=== PATIENT | female | born 1930 | race Caucasian/White ===

== ENCOUNTER 2017-03-22 09:30 | Emergency (ER) | payer MEDICARE ==
[2017-03-22 09:59] VITALS: BP 149/62
--- NOTE | 2017-03-22 09:59 | UC ---
Head Injury HPI - HPI Summary HPI Summary: Pt presents with daughter saying that she fell 2 days ago. She tripped going down steps and sustained a FOOSH type injury. No lacerations. Hit the bridge of her nose on the ground. Fall was witnessed and she had no LOC. Pain was mostly in her nose and b/l hands for that day and yesterday. Today her only complaint is LT hand generalized pain and mild redness/swelling of the 1st and 2nd MCPs. Last night she used a hand brace she had at home and her hand feels 90% better today. Denies fever, chills, vision changes, dizziness, headache, weakness, or numbness. - History Of Current Complaint Stated Complaint: FELL NOSE/HANDS INJURY Time Seen by Provider: 03/22/17 09:48 Hx Obtained From: Patient Onset/Duration: Sudden Onset Severity Currently: Moderate Severity Initially: Mild Pain Intensity: 3 Pain Scale Used: 0-10 Numeric Character: Sharp - Allergies/Home Medications Allergies/Adverse Reactions: Allergies Allergy/AdvReac Type Severity Reaction Status Date / Time AZITHROMYCIN Allergy Nausea Uncoded 11/19/16 12:05 Home Medications: Home Medications Acetaminophen [Eq Pain Reliever] 500 mg PO 03/22/17 [History] Alprazolam 0.25 mg PO 03/22/17 [History] Amlodipine Besylate [Norvasc 5 mg tab] 5 mg PO DAILY 03/22/17 [History Confirmed 03/22/17] Atenolol [Tenormin 100 MG] 100 mg PO DAILY 03/22/17 [History Confirmed 03/22/17] Atorvastatin* [Lipitor*] 20 mg PO 1700 03/22/17 [History Confirmed 03/22/17] Utsytitxkt-Qnjyvyf-Dgaqyaun [Fiorinal 50-325-40 mg-] 1 cap PO Q6H PRN 03/22/17 [ History Confirmed 03/22/17] Calcium Citrate-Vitamin D [Citracal + D3 Maximum] 1 tab PO 03/22/17 [History] Cholecalciferol TAB* [Vitamin D TAB*] 1,000 unit PO DAILY 03/22/17 [History Confirmed 03/22/17] Omeprazole CAP* [Prilosec CAP* 20 MG] 20 mg PO DAILY 03/22/17 [History Confirmed 03/22/17] Ondansetron HCl [Zofran 4 MG TAB] 4 mg PO 03/22/17 [History] PMH/Surg Hx/FS Hx/Imm Hx Previously Healthy: Yes Endocrine History: Dyslipidemia Cardiovascular History: Hypertension GI/ History: Gastroesophageal Reflux - Surgical History Surgical History: Yes Surgery Procedure, Year, and Place: HYSTERECTOMY. [facility]. [facility] 2008. BILATERAL CATARACTS - Social History Occupation: Retired Lives: With Family Alcohol Use: None Substance Use Type: None Smoking Status (MU): Never Smoked Tobacco Review of Systems Constitutional: Negative Skin: Negative Eyes: Negative Respiratory: Negative Cardiovascular: Negative Neurovascular: Negative Musculoskeletal: Other: - Pain in left hand Neurological: Negative Psychological: Negative All Other Systems Reviewed And Are Negative: Yes Physical Exam Triage Information Reviewed: Yes Appearance: Well-Appearing, Well-Nourished Vital Signs Reviewed: Yes Eyes: Positive: Conjunctiva Clear, Other: - EOMI. PERRLA. No papilledema. ENT: Positive: Hearing grossly normal, Pharynx normal, TMs normal. Negative: Pharyngeal erythema, Nasal congestion, Nasal drainage, TM bulging, TM dull, TM red, Tonsillar swelling, Tonsillar exudate, Sinus tenderness Neck: Positive: Supple, No Lymphadenopathy, Other: - FROM NTTP. Respiratory: Positive: Chest non-tender, Lungs clear, Normal breath sounds, No respiratory distress, No accessory muscle use Cardiovascular: Positive: RRR, No Murmur, Pulses Normal Musculoskeletal: Positive: Strength Intact, ROM Intact, Edema @ - Left hand at the 1st and 2nd MCPs mild., Other: - No obvious bony deformities. FROM left elbow, wrist, and all digits. 5/5 strength in b/l elbow, wrist, and all digits. Neurological: Positive: Alert, Muscle Tone Normal, Other: - Sensations intact UEs and all digits. CN II-XII grossly intact. Psychological: Positive: Age Appropriate Behavior Head Injury Course/Dx - Course Course Of Treatment: Hand XR - IMPRESSION: 1. OSTEOPENIA. 2. OSTEOARTHRITIS. 3. SOFT TISSUE CALCIFICATION ALONG THE FIRST AND THIRD MCP JOINTS SUGGESTIVE OF A CRYSTALLINE ARTHROPATHY. 4. NO ACUTE OSSEOUS INJURY. THE DEGREE OF OSTEOPENIA MAY MAKE A NONDISPLACED FRACTURE RADIOGRAPHICALLY OCCULT. IF SYMPTOMS PERSIST, RECOMMEND REPEAT IMAGING. Pt will continue icing and using brace as needed for pain. She sees Dr. Serna for orthopedics - she will f/u with him prn - Differential Dx/Diagnosis Differential Diagnosis/HQI/PQRI: Contusion Provider Diagnoses: Left hand contusion Discharge - Discharge Plan Condition: Stable Disposition: HOME Patient Education Materials: Contusion in Adults (ED) Referrals: Isi Hyatt MD [Primary Care Provider] - Gianfranco Serna MD [Medical Doctor] - If Needed Additional Instructions: 1) Ice and use hand brace as needed for pain and swelling 2) If symptoms persist or get worse - please call the number below to schedule a follow up with Orthopedics Your blood pressure was high at todays visit. Please see your primary provider within 4 weeks for recheck and re-evaluation.
--- NOTE | 2017-03-22 10:44 | RAD ---
HISTORY: Fall, left hand pain COMPARISONS: None VIEWS: 4, Frontal, lateral, and oblique views of the left hand FINDINGS: BONE DENSITY: There is diffuse osteopenia. BONES: There is no displaced fracture. JOINTS: There is osteoarthritis of the first CMC joint, and first MCP joint. ALIGNMENT: There is no dislocation. SOFT TISSUES: There is soft tissue calcification along the first MCP joint and third MCP joint. OTHER FINDINGS: None. IMPRESSION: 1. OSTEOPENIA. 2. OSTEOARTHRITIS. 3. SOFT TISSUE CALCIFICATION ALONG THE FIRST AND THIRD MCP JOINTS SUGGESTIVE OF A CRYSTALLINE ARTHROPATHY. 4. NO ACUTE OSSEOUS INJURY. THE DEGREE OF OSTEOPENIA MAY MAKE A NONDISPLACED FRACTURE RADIOGRAPHICALLY OCCULT. IF SYMPTOMS PERSIST, RECOMMEND REPEAT IMAGING.
== END 2017-03-22 11:15 | disposition home or self-care (01) ==
LOC: UCEAST 09:30
DX: S60.222A Contusion of left hand, initial encounter (principal); W10.9XXA Fall (on) (from) unspecified stairs and steps, initial encounter; Y93.9 Activity, unspecified; Y92.9 Unspecified place or not applicable; Y99.9 Unspecified external cause status; M85.842 Other specified disorders of bone density and structure, left hand; M19.042 Primary osteoarthritis, left hand; L94.2 Calcinosis cutis; I10 Essential (primary) hypertension; K21.9 Gastro-esophageal reflux disease without esophagitis; E78.5 Hyperlipidemia, unspecified
CPT/HCPCS: 99211; G0463

== ENCOUNTER 2018-08-23 11:01 | Emergency (ER) | payer MEDICARE ==
[2018-08-23 11:20] VITALS: BP 147/67
[2018-08-23] MEDS ORDERED: Ondansetron ODT TAB* 4 MG PO ONE (11:33)
--- NOTE | 2018-08-23 11:36 | UC ---
Abdominal Pain Female HPI - HPI Summary HPI Summary: CHIEF COMPLAINT and HPI: This is a 88 with epigastric pain over the last 3 days. Denies pain, SOB or chest pain. Calls it "discomfort." In CCC, no pain. Patient c/o increased stress and anxiety. of DC 5 years ago. Also not taking her prilosec. Has hx of peptic discomfort and nausea. Being treated with prilosec and zofran. Medications & Allergies Reviewed. Nurses Note Reviewed. " c/o for three days she gets a pain "under my boobs" she is nauseatd but cannot throwup; she c/o constipation also.per patient "thought i was having a heart attack last night" She denies any chest pain, shortness of breath or difficulty breathing. " Hypertension status reviewed. Visit History Reviewed. Chronic conditions and problem list reviewed. Information contributory to present complaint: intermittent constipation. - History of Current Complaint Chief Complaint: UCGeneralIllness Stated Complaint: NAUSEA UPPER ABD PAIN Time Seen by Provider: 08/23/18 11:32 Hx Obtained From: Patient, Family/Showroom Sales Assistant Hx Last Menstrual Period: post menopausal Onset/Duration: Gradual Onset, Lasting Days - 3 Timing: Intermittent Episodes Lasting: - unknown Severity Currently: None Pain Intensity: 0 - no pain now Pain Scale Used: 0-10 Numeric Location: Epigastric Radiates: No Character: Other - "discomfort Aggravating Factor(s): Nothing Alleviating Factor(s): Antacids - patient uncertain Associated Signs and Symptoms: Positive: Negative Simlar Episode/Dx as:: chronic intermittent upper abdominal discomfort with nausea Allergies/Adverse Reactions: Allergies Allergy/AdvReac Type Severity Reaction Status Date / Time AZITHROMYCIN Allergy Nausea Uncoded 08/23/18 11:21 Home Medications: Home Medications Hydrochlorothiazide TAB* [Hydrodiuril TAB*] 25 mg PO DAILY 08/23/18 [History Confirmed 08/23/18] Potassium Chloride [Klor-Con M20] 08/23/18 [History Confirmed 08/23/18] PMH/Surg Hx/FS Hx/Imm Hx - Additional Past Medical History Additional PMH: PAST MEDICAL HISTORY: HTN; hearing deficit; nausea; peptic disease. FAMILY HISTORY: Positive history of: -HYPTERTENSION SOCIAL HISTORY: Employment: retired Family Environment: granddaughter checks on her Habits: non smoker; no ETOH - Surgical History Surgical History: Yes Surgery Procedure, Year, and Place: HYSTERECTOMY. [facility] [place]. [facility] 2007. BILATERAL CATARACTS - Social History Alcohol Use: None Substance Use Type: None Smoking Status (MU): Never Smoked Tobacco Review of Systems All Other Systems Reviewed And Are Negative: Yes Constitutional: Positive: Negative. Negative: Fever Cardiovascular: Positive: Negative. Negative: Chest Pain Gastrointestinal: Positive: Abdominal Pain - epigastric discomfort, Nausea. Negative: Vomiting, Diarrhea Genitourinary: Positive: Negative Psychological: Positive: Depressed - anxious; nephew recently Is Patient Immunocompromised?: No Physical Exam - Summary Physical Exam Summary: Appearance: The patient is well-appearing, is in no pain or distress, and is well-nourished. Eyes: Conjunctiva are clear. Pupils are equal and reactive to light and accommodation. Extra ocular muscle movement is intact. ENT: The hearing is grossly normal, the pharynx is normal, and the TMs are normal. There is no muffled or hoarse voice. No stridor. Neck: The neck is supple and there is no lymphadenopathy. Respiratory: The chest is nontender to palpation and without crepitus. The lungs are clear, there are normal breath sounds, and there is no respiratory distress. No wheezes, rales or rhonchi. Cardiovascular: Heart sounds reveal a regular rate and rhythm. There are no clicks, rubs or murmurs. There are no carotid bruits or thrills. Circulation is grossly intact. Abdomen: The abdomen is soft and nontender. There is no organomegaly. Bowel sounds are present and within normal limits. No point tenderness at McBurneys point. No peritoneal signs. Musculoskeletal: Strength is intact. The patient moves all extremities. Neurological: The patient is alert. Motor and sensory are examination grossly intact. Speech is normal. Psychological: The patient displays age appropriate behavior Skin: Negative for rashes. EKG: Sinus rhythm, single premature beat with an intraventricular conduction delay. No acute ischemia. Read by Es Triage Information Reviewed: Yes Vital Signs: Initial Vital Signs Temp 97.2 F 08/23/18 11:11 Pulse 68 08/23/18 11:11 Resp 18 08/23/18 11:11 BP 147/67 08/23/18 11:11 Pulse Ox 100 08/23/18 11:11 Vital Signs Reviewed: Yes Abd Pain Female Course/Dx - Course Course Of Treatment: MEDICAL DECISION MAKING & PLAN:This is a 88 with epigastric pain over the last 3 days. Denies pain. Calls it "discomfort." In CCC, no pain. Patient c/o increased stress and anxiety. Also not taking her prilosec. Has hx of peptic discomfort and nausea. Being treated with prilosec and zofran. Physical examination is unremarkable. Patient is comfortable and conversant. Smiling. Moving without pain. Denies pain in CCC. Given her hx and current psychologial stress, my differential besides pain from cardiovascular event ( negative EKG), is peptic disease. Patient and granddaughter know to follow up in two days and go to ED for increased or new pain. Will take prilosec everyday as prescribed. Recommended Mylanta today. MEDICATIONS REVIEWED: Medications have been included in the original chart and reviewed. HYPERTENSION STATUS REVIEWED. CURRENT HTN TREATMENT: Elevated BP but has current hypertension diagnosis and treatment. Patient maintains compliance with medication. Referred to PCP to evaluate current medication. Patient voices understanding. - Differential Dx/Diagnosis Differential Diagnosis: Abdominal Aortic Aneurysm, Constipation, Gall Bladder Disease, Peptic Ulcer Disease Provider Diagnosis: Peptic disease Discharge - Sign-Out/Discharge Documenting (check all that apply): Patient Departure All imaging exams completed and their final reports reviewed: No Studies - Discharge Plan Condition: Stable Disposition: HOME Patient Education Materials: Peptic Ulcer (ED), Diet for Stomach Ulcers and Gastritis (ED) Referrals: Isi Hyatt MD [Primary Care Provider] - Additional Instructions: WE DISCUSSED: PLEASE SEEK CARE AT THE EMERGENCY DEPARTMENT IF SYMPTOMS WORSEN OR IF NEW SYMPTOMS DEVELOP. FOLLOW UP WITH YOUR PRIMARY CARE PHYSICIAN IF CONDITION CONTINUES BEYOND 3 DAYS WITHOUT IMPROVEMENT. We are open from 7 a.m. to 10 p.m. Call us with any questions or concerns. YOUR DIAGNOSIS IS: PEPTIC DISEASE; EXTRA ACID IN YOUR STOMACH YOUR PRESCRIPTION RECOMMENDATION IS: none; get Mylanta; RESTART YOUR OMEPRAZOLE and Zofran. Take Benedryl, 12.5 MG, or Xanax for anxiety. OTHER INSTRUCTIONS: SEE YOUR DOCTOR IN TWO DAYS; GO TO ED FOR ANY INCREASED OR DIFFERENT PAIN OR ANY NEW SYMPTOMS. Your granddaughter will keep a close eye on you. Your EKG did not show a heart attack, but for a complete heart evaluation you would need to go to the ED. Hypertension Discharge Instructions: Your blood pressure reading today was 147/67, indicating HYPERTENSION. Follow- up with your primary care provider as planned in 2 days for blood pressure check and appropriate recommendations and treatment, as needed. - Billing Disposition and Condition Condition: STABLE Disposition: Home
== END 2018-08-23 12:14 | disposition home or self-care (01) ==
LOC: UCEAST 11:01
DX: K30 Functional dyspepsia (principal); I10 Essential (primary) hypertension; H91.8X9 Other specified hearing loss, unspecified ear
CPT/HCPCS: 93005; 99212; A9270-GY; G0463

== ENCOUNTER 2018-10-27 12:43 | Emergency (ER) | payer MEDICARE ==
[2018-10-27] MEDS ORDERED: Acetaminophen TAB* 325 MG PO ONE (13:50)
--- NOTE | 2018-10-27 14:33 | UC ---
Minor Trauma HPI - HPI Summary HPI Summary: 88-year-old female presents with daughter with complaints of low back pain after a fall. States her dog got loose and started fighting with another dog in the street, she was attempting to retrieve her dog and got knocked over backwards falling flat on her back onto the asphalt. States she did hit the back of her head. No loss of consciousness. She was helped to her feet by a bystander and assisted back to her house. She is complaining of severe low back pain. She took 2 of her Fiorocet with no relief in pain. Used a heating pad with some relief. Denies headache, visual disturbances, dizziness, lightheadedness, neck pain, chest pain, shortness of breath, weakness, numbness , or tingling of the extremities, or any other injury. - History of Current Complaint Chief Complaint: UCBackPain Stated Complaint: BACK INJURY Time Seen by Provider: 10/27/18 13:33 Hx Obtained From: Patient Hx Last Menstrual Period: post menopausal Pain Intensity: 8 - Allergies/Home Medications Allergies/Adverse Reactions: Allergies Allergy/AdvReac Type Severity Reaction Status Date / Time AZITHROMYCIN Allergy Nausea Uncoded 10/27/18 13:12 PMH/Surg Hx/FS Hx/Imm Hx Endocrine History: Dyslipidemia Cardiovascular History: Hypertension Neurological History: Migraine Psychological History: Anxiety - Surgical History Surgical History: Yes Surgery Procedure, Year, and Place: HYSTERECTOMY. [facility] 1998. [facility] 2007. BILATERAL CATARACTS - Family History Known Family History: Positive: Non-Contributory - Social History Occupation: Retired Lives: With Family Alcohol Use: None Substance Use Type: None Smoking Status (MU): Never Smoked Tobacco Review of Systems All Other Systems Reviewed And Are Negative: Yes Constitutional: Positive: Negative Skin: Positive: Negative Eyes: Negative: Blurred Vision, Diplopia, Photophobia ENT: Positive: Negative Respiratory: Negative: Shortness Of Breath Cardiovascular: Negative: Palpitations, Chest Pain Gastrointestinal: Negative: Abdominal Pain, Vomiting, Diarrhea, Nausea Genitourinary: Positive: Negative Motor: Negative: Weakness Neurovascular: Negative: Decreased Sensation Musculoskeletal: Positive: Other: - See HPI Neurological: Negative: Headache, Weakness, Paresthesia, Numbness Is Patient Immunocompromised?: No Physical Exam - Summary Physical Exam Summary: GENERAL APPEARANCE: Alert and cooperative older adult female who appears to be uncomfortable. HEAD: Atraumatic. Normocephalic. EYES: Conjunctiva clear. No drainage. PERRL, EOM intact. Vision is grossly intact. EARS: External auditory canals and tympanic membranes clear, hearing grossly intact. NOSE: No nasal discharge. THROAT: Pharynx normal. No tonsilar inflammation, swelling, exudate, or lesions. Uvula midline. Oral cavity normal. Teeth and gingiva in good general condition. NECK: Neck supple, non-tender without lymphadenopathy. CARDIAC: Normal S1 and S2. No S3, S4 or murmurs. Rhythm is regular. There is no peripheral edema, cyanosis or pallor. Extremities are warm and well perfused. Capillary refill is less than 2 seconds. Peripheral pulses intact. LUNGS: Clear to auscultation without rales, rhonchi, wheezing or diminished breath sounds. ABDOMEN: Positive bowel sounds. Soft, nondistended, nontender. No guarding or rebound. No masses or hepatosplenomegally. MUSKULOSKELETAL: ROM intact to all extremities. No joint erythema or tenderness. Normal muscular development. BACK: Examination of the spine reveals nontender cervical and thoracic spine. Midline and paraspinous tenderness of the upper lumbar spine without gross deformity. NEUROLOGICAL: CN II-XII intact. Strength and sensation symmetric and intact throughout. SKIN: Skin normal color, texture and turgor with no lesions or eruptions. Triage Information Reviewed: Yes Vital Signs: Initial Vital Signs Temp 96.5 F 10/27/18 12:59 Pulse 70 10/27/18 12:59 Resp 18 10/27/18 12:59 BP 143/68 10/27/18 12:59 Pulse Ox 96 10/27/18 12:59 Vital Signs Reviewed: Yes Diagnostics - Radiology No standard instances Radiology Interpretation Completed By: Radiologist Summary of Radiographic Findings: Order Information: CT BRAIN WO. Accession Number: [id number]. CPT: 56222. INDICATION: Head injury. COMPARISON: Comparison is made with a prior MRI of the brain from November 22, 2016. TECHNIQUE : Contiguous axial sections of the brain were obtained from the skull base to the vertex without contrast. FINDINGS: The ventricles, cisterns and sulci are enlarged consistent with diffuse atrophy. There are multiple focal areas of decreased density in the subcortical and periventricular white matter suggestive of moderate chronic small vessel ischemic changes. In addition there is edema in the white matter in the posterior left parietal lobe which is unchanged from the prior MRI study which was thought to be related to a small meningioma along the posterior falx and posttreatment changes. The meningioma is not well. visualized on the current study. The patient is status post left suboccipital craniotomy. No fracture is seen. The visualized portion of the paranasal sinuses and mastoid air cells appear clear. IMPRESSION: 1. NO EVIDENCE FOR ACUTE INTRACRANIAL ABNORMALITY. 2. EDEMA IN THE POSTERIOR LEFT PARIETAL LOBE, UNCHANGED. 3. POSTSURGICAL CHANGES. 4. FINDINGS SUGGESTIVE OF MODERATE CHRONIC SMALL VESSEL ISCHEMIC CHANGES. Order Information: CT SPINE CERVICAL W/O. Accession Number: [id number]. CPT: 40008. Indication: Fall, neck pain. CT of the neck was performed without oral or IV contrast administration. Coronal and sagittal reconstructed images were obtained. The skull base demonstrates no evidence of fracture. No other bone or joint abnormalities identified. The C1 ring is intact. Calcification of the transverse longitudinal ligament is noted. The remainder of the vertebral bodies appear normal in height. There is disc space narrowing at C3-C4, C4-C5, C5-C6 and C6-C7 with spondylitic ridge posteriorly. There is evidence of old injury of the C6 spinous processes with well corticated fragmentation of the spinous process. No other fractures are noted. IMPRESSION: Degenerative disc disease at multiple levels without fracture of the cervical spine. Old injury versus calcification of the posterior ligaments at the C6 spinous process. Order Information: CT SPINE THORACIC W/O. Accession Number: [id number]. CPT: 21208. INDICATION: Trauma. COMPARISON: There are no relevant prior studies available for comparison. TECHNIQUE: Contiguous axial sections were obtained beginning above the C7 vertebra and scanning through the L1 vertebra. Images were reconstructed in the sagittal and coronal planes. FINDINGS: VERTEBRA: There is a mild dorsal lumbar scoliosis convex toward the left in the upper dorsal region and toward the right in the lower lumbar region. In addition there is mild grade 1 anterior spondylolisthesis at the L4-L5 and L5-S1 levels of approximately 5 mm at each level. There is a moderate burst fracture of the L1 vertebral body with loss of height of approximately 30-40%. There is mild retropulsion of fracture fragments into the anterior spinal canal approximately 5 mm. This would appear to cause mild to moderate spinal canal narrowing. The posterior elements appear intact. No additional fracture is seen. DISCS: There is mild to moderate diffuse degenerative disc disease throughout the dorsal spine. At the L1-L2 level there is a minimal broad-based disc bulge and moderate hypertrophic changes within the facet joints. There is mild spinal canal narrowing and mild bilateral neural foraminal narrowing. At the L2-L3 level there is posterior endplate spurring and a moderate broad-based disc bulge and severe hypertrophic changes within the facet joints which appears to cause moderate to severe spinal canal narrowing. There is moderate neural foraminal narrowing on the right side and mild neural foraminal narrowing on the left side. At the L3-L4 level there is posterior plate spurring and a moderate broad-based disc bulge and moderate to severe hypertrophic changes within the facet joints which causes moderate to severe spinal canal narrowing and mild to moderate bilateral neural foraminal narrowing. At the L4-L5 level there is posterior endplate spurring and a mild broad-based disc bulge and moderate hypertrophic changes within the facet joints. There is mild spinal canal narrowing. There is mild neural foraminal narrowing on the right side and moderate neural foraminal narrowing on the left side. At the L5-S1 level there is posterior endplate spurring associated with a mild broad-based disc bulge and moderate hypertrophic changes within the facet joints. There is mild spinal canal narrowing and moderate bilateral neural foraminal narrowing. IMPRESSION: 1. ACUTE BURST FRACTURE OF THE L1 VERTEBRAL BODY WITH MILD RETRO-PORTION OF FRACTURES FRAGMENTS INTO THE ANTERIOR SPINAL CANAL. 2. MODERATE DORSAL SPONDYLITIC CHANGES AND MODERATE TO SEVERE LUMBAR SPONDYLITIC CHANGES. Minor Trauma Course/Dx - Course Course Of Treatment: 88-year-old female presents with daughter with complaints of low back pain after a fall. States her dog got loose and started fighting with another dog in the street, she was attempting to retrieve her dog and got knocked over backwards falling flat on her back onto the asphalt. States she did hit the back of her head. No loss of consciousness. She was helped to her feet by a bystander and assisted back to her house. She is complaining of severe low back pain. She took 2 of her Fiorocet with no relief in pain. Used a heating pad with some relief. Denies headache, visual disturbances, dizziness, lightheadedness, neck pain, chest pain, shortness of breath, weakness, numbness , or tingling of the extremities, or any other injury. Afebrile. VSS. Patient had nontender cervical and thoracic spine, midline and paraspinous tenderness of the mid lumbar spine without gross deformity, head appeared atraumatic, she was neurologically intact, and remainder of exam was unremarkable. A CT brain and CTL spine were obtained. The CT brain showed no acute intracranial abnormality, CT c-spine showed multi-level DDD with possible old injury of the C6 spinous process, CT of the TL spine was significant for moderate burst fracture of the L1 vertebral body with loss of height of approximately 30-40%, mild retropulsion of fracture fragments into the anterior spinal canal approximately 5 mm which appears to cause mild to moderate spinal canal narrowing. Discussed findings with patient and daughter. Consulted with Dr. Thompson, neurosurgery who is recommending that the patient be evaluated in the ED and have an MRI of the spine and possible admission. Discussed the plan of care with the patient and daughter and they are agreeable. They have elected to transport to the ED via private vehicle. - Differential Dx/Diagnosis Differential Diagnosis/HQI/PQRI: Contusion(s), Fracture, Strain Provider Diagnosis: Closed burst fracture of lumbar vertebra - Physician Notifications Discussed Patient Care With: Roxanne Thompson Time Discussed With Above Provider: 16:10 Instructed by Provider To: Other - Recommends evaluation in the ED with MRI evaluation and possible admission. Discharge - Sign-Out/Discharge Documenting (check all that apply): Patient Departure All imaging exams completed and their final reports reviewed: Yes - Discharge Plan Condition: Stable Disposition: HOME-RECOMMEND TO ED Referrals: Isi Hyatt MD [Primary Care Provider] - Additional Instructions: Your CT scan of the brain was normal. The CT scan of the spine showed a burst fracture of the first lumbar spine. I spoke with Dr. Thompson, neurosurgery, who is recommending that you be evaluated in the emergency room and have an MRI of the spine performed. Go directly to the emergency room from here. Do not eat or drink anything until you have been evaluated. - Billing Disposition and Condition Condition: STABLE Disposition: Home-Recommend to ED
[2018-10-27 15:00] VITALS: BP 151/52
== END 2018-10-27 16:28 | disposition home health service (06) ==
LOC: UCEAST 12:43
DX: S32.011A Stable burst fracture of first lumbar vertebra, initial encounter for closed fracture (principal); W18.39XA Other fall on same level, initial encounter; Y93.K1 Activity, walking an animal; Y92.480 Sidewalk as the place of occurrence of the external cause; Y99.8 Other external cause status; E78.5 Hyperlipidemia, unspecified; I10 Essential (primary) hypertension; F41.9 Anxiety disorder, unspecified
CPT/HCPCS: 70450; 72125; 72128; 72131; 99212; A9270-GY; G0463

== ENCOUNTER 2018-10-27 16:43 | Inpatient (IN) | payer MEDICARE ==
--- NOTE | 2018-10-27 17:32 | ED ---
Back Pain - HPI Summary HPI Summary: This patient is an 88 year old F presenting to [facility] accompanied by daughter with a chief complaint of back pain s/p fall at 08:30 on 10/27/18. Pt reports being able to walk after fall. Per triage, the patient rates the pain 8/10 in severity. Pt was seen at [facility] and told she had a fractured vertebrae. Then she was sent to ED for a MRI. - History of Current Complaint Chief Complaint: EDBackInjuryPain Stated Complaint: FELL AND CC SENT FOR MRI PER DAUGHTER Time Seen by Provider: 10/27/18 17:02 Hx Obtained From: Patient Hx Last Menstrual Period: post menopausal Onset/Duration: Sudden Onset, Still Present Onset/Duration: Started Hours Ago, Still Present Severity Initially: Severe Severity Currently: Severe Pain Intensity: 8 Pain Scale Used: 0-10 Numeric Aggravating Symptom(s): Nothing Alleviating Symptom(s): Nothing - Allergies/Home Medications Allergies/Adverse Reactions: Allergies Allergy/AdvReac Type Severity Reaction Status Date / Time azithromycin AdvReac Nausea Verified 10/27/18 21:39 PMH/Surg Hx/FS Hx/Imm Hx Endocrine/Hematology History: Denies: Hx Diabetes, Hx Thyroid Disease Cardiovascular History: Reports: Hx Hypertension Denies: Hx Pacemaker/ICD Respiratory History: Denies: Hx Asthma GI History: Denies: Hx Ulcer History: Denies: Hx Renal Disease Musculoskeletal History: Reports: Hx Osteoporosis Sensory History: Reports: Hx Hearing Aid Psychiatric History: Denies: Hx Panic Disorder - Surgical History Surgery Procedure, Year, and Place: HYSTERECTOMY. [facility] 1998. [facility] 2007. BILATERAL CATARACTS Infectious Disease History: No Infectious Disease History: Denies: Traveled Outside the [place] in Last 30 Days - Family History Known Family History: Negative: Diabetes - Social History Alcohol Use: None Hx Substance Use: No Substance Use Type: Reports: None Hx Tobacco Use: No Smoking Status (MU): Never Smoked Tobacco Review of Systems Negative: Fever Positive: Other - pos -Back Pain All Other Systems Reviewed And Are Negative: Yes Physical Exam - Summary Physical Exam Summary: Appearance: The patient is well-nourished in no acute distress and in no acute pain. Skin: The skin is warm and dry and skin color reflects adequate perfusion. HEENT: The head is normocephalic and atraumatic. The pupils are equal and reactive. The conjunctivae are clear and without drainage. Nares are patent and without drainage. Mouth reveals moist mucous membranes and the throat is without erythema and exudate. The external ears are intact. The ear canals are patent and without drainage. The tympanic membranes are intact. Neck: The neck is supple with full range of motion and non-tender. There are no carotid bruits. There is no neck vein distemension. Respiratory: Chest is non-tender. Lungs are clear to auscultation and breath sounds are symmetrical and equal. Cardiovascular: Heart is regular rate and rhythm. There is no murmur or rub auscultated. There is no peripheral edema and pulses are symmetrical and equal. Abdomen: The abdomen is soft and non-tender. There are normal bowel sounds heard in all four quadrants and there is no organomegaly palpated. Musculoskeletal: There is no back tenderness noted. Extremities are non-tender with full range of motion. There is good capillary refill. There is no peripheral edema or calf tenderness elicited. Neurological: Patient is alert and oriented to person, place and time. The patient has symmetrical motor strength in all four extremities. Cranial nerves are grossly intact. Deep tendon reflexes are symmetrical and equal in all four extremities. Psychiatric: The patient has an appropriate affect and does not exhibit any anxiety or depression. Triage Information Reviewed: Yes Vital Signs On Initial Exam: Initial Vitals Temp Pulse Resp BP Pulse Ox 98.6 F 72 16 178/90 97 10/27/18 16:46 10/27/18 16:46 10/27/18 16:46 10/27/18 16:46 10/27/18 16:46 Vital Signs Reviewed: Yes Appearance: Positive: Pain Distress Skin: Positive: Warm, Dry Head/Face: Positive: Normal Head/Face Inspection Eyes: Positive: Normal ENT: Positive: Normal ENT inspection Neck: Positive: Supple Respiratory/Lung Sounds: Positive: Clear to Auscultation Cardiovascular: Positive: Normal Abdomen Description: Positive: Nontender Bowel Sounds: Positive: Present Musculoskeletal: Positive: Other - tender para-lumbar on both sides. Neurological: Positive: Normal Psychiatric: Positive: Normal Diagnostics - Vital Signs Vital Signs Temp Pulse Resp BP Pulse Ox 10/27/18 16:46 98.6 F 72 16 178/90 97 - Laboratory Result Diagrams: 10/28/18 06:13 10/28/18 06:13 Lab Statement: Any lab studies that have been ordered have been reviewed, and results considered in the medical decision making process. - Additional Comments Diagnostic Additional Comments: Lumbar Spine MRI reveals, per radiologist, IMPRESSION: 1. There is a mild decrease of vertebral height of the L1 vertebral level, with acute burst fracture. There is mild dorsal bowing of the posterior vertebral margin, and a pathological fracture cannot be excluded. Fracture lines extend into the bilateral pedicles. 2. Degenerative changes are noted from L2-3 through L5-S1, as described above. Additional degenerative changes are visualized within the lower thoracic spine. 3. Severe narrowing of the thecal sac and narrowing of both lateral recesses visualized from L2-3 through L4-5. 4. At L5-S1, a central protrusion is visualized with moderate narrowing of the thecal sac. There is narrowing of both lateral recesses. 5. Neural foraminal narrowing is identified diffusely within the lumbar spine, as well as the T12-L1 level, as detailed above. A right foraminal protrusion is identified at L2-3. 6. Grade I anterolisthesis of L4 on L5 and L5 on S1. 7. Additional findings described above. ED physician has reviewed this radiology report. Back Pain Course/Dx - Course Course Of Treatment: Ms. Cantrell was sent over from [facility] for an MRI after having fallen and injured her back. She was nontoxic in appearance and neurologically intact. MRI was obtained and Dr. Varghese was consulted. He evaluated her in the department and recommended admission. Dr. Higgins was contacted for the hospitalists. - Diagnoses Provider Diagnoses: Lumbar burst fracture - Provider Notifications Discussed Care Of Patient With: Roxanne Thompson Time Discussed With Above Provider: 19:24 Instructed by Provider To: Other - Discussed patient care with Dr Thompson and he said he would see patient. 20:06 - Dr. Thompson reccomends pt for admission. Discharge - Sign-Out/Discharge Documenting (check all that apply): Patient Departure - Admission Patient Received Moderate/Deep Sedation with Procedure: No - Discharge Plan Condition: Good Disposition: ADMITTED TO [facility] - Billing Disposition and Condition Condition: GOOD Disposition: Admitted to [facility] - Attestation Statements Document Initiated by Scribe: Yes Documenting Scribe: Dee Mitchell Provider For Whom Scribe is Documenting (Include Credential): Dr. Luis E Ridley MD Scribe Attestation: I, Dee Mitchell, scribed for Dr. Luis E Ridley MD on 10/28/18 at 1606. Scribe Documentation Reviewed: Yes Provider Attestation: The documentation as recorded by the scribe, Dee Mitchell accurately reflects the service I personally performed and the decisions made by me, Dr. Luis E Ridley MD Status of Scribe Document: Viewed
[2018-10-27 21:21] LABS: ABS Lymphocytes 1.3 10^3/ul (1.0-4.8); ABS Neutrophils 12.3 10^3/ul (1.5-7.7); Hematocrit 40 % (35-47); Hemoglobin 13.8 g/dL (12.0-16.0); Lymphocyte % 8.6 %; Mean Corpuscular HGB Conc 34 g/dL (31-36); Mean Corpuscular Hemoglobin 31 pg (27-31); Mean Corpuscular Volume 90 fL (80-97); Mean Platelet Volume 8.1 fL (7.4-10.4); Platelet Count 222 10^3/uL (150-450); Red Blood Count 4.49 10^6 /uL (3.70-4.87); Red Cell Distribution Width 13 % (10-15); White Blood Count 14.5 10^3/uL (3.5-10.8)
[2018-10-27 21:30] LABS: BUN/Creatinine Ratio 24.1 (8-20); Calcium 9.4 mg/dL (8.6-10.3); EGFR African American 128.9 (>60); EGFR Non-African American 106.5 (>60); Potassium 3.2 mmol/L (3.5-5.0)
[2018-10-27] MEDS ORDERED: BUTALBITAL PO PRN (21:32)
[2018-10-27] MEDS ORDERED: CAFFEINE PO PRN (21:32)
[2018-10-27] MEDS ORDERED: ASPIRIN PO PRN (21:32)
[2018-10-27] MEDS ORDERED: Potassium Chlor TAB* 20 MEQ TAB.ER PO ONE (21:39)
[2018-10-27] MEDS: oxyCODONE/Acetamin 5/325 MG* TAB PO PRN (21:50)
--- NOTE | 2018-10-27 22:05 | ADMNOTE ---
Subjective Date of Service: 10/27/18 Interval History: 88yoF with Hypertension, Hyperlipidemia, Osteoporosis, here after a fall this morning. Patient was trying to break-up fright of her dog when she fell. No loss of consciousness was able to go back into her house and upstairs into her bedroom but was having pain. Pain located at the back radiating to the front. No other urinary pain or change in frequency. No loss of any bladder or bowel control. No numbness or tingling in body. Family History: Unchanged from Admission - Non-Contributary at her age. Social History: Unchanged from Admission - Quit Smoking 53 years ago. Son lives at her home. Past Medical History: Findings - Hypertension, Dyslipidemia, Osteoporosis, Anxiety, Hysterectomy, Acustic Neuroma, Brain stem tumors. Review of Systems - Measurements Intake and Output: Intake and Output Last 24 Hours 10/25/18 10/26/18 10/27/18 10/28/18 06:59 06:59 06:59 06:59 Weight 126 lb - Review of Systems Constitutional Symptoms: Negative: Weakness, Fever Dermatology: Negative: Rash Eyes: Negative: Change in Vision, Eye Pain Pulmonary: Negative: Cough, Sputum, Wheezing, Respiratory Distress, Shortness of Breath Cardiology: Negative: Chest Pain, Shortness of Breath, Palpitations, Edema Gastroenterology: Positive: Nausea Negative: Difficulty Swallowing, Heartburn, Constipation Genital - Urinary: Negative: Dysuria, Hematuria, Polyuria Neurology: Negative: Change in Vision, Dizziness, Change in Memory, Change in Speech, Numbness\Paresthesiae, Unexplained Weakness Objective Active Medications: Acetaminophen (Tylenol Tab*) 650 mg PO Q4H PRN PRN Reason: FEVER/PAIN Alprazolam (Xanax Tab*) 0.25 mg PO TID PRN PRN Reason: ANXIETY Amlodipine Besylate (Norvasc Tab*) 5 mg PO DAILY [facility] Atorvastatin Calcium (Lipitor*) 20 mg PO 1700 [facility] Cholecalciferol (Vitamin D Tab*) 1,000 units PO DAILY [facility] Enoxaparin Sodium (Lovenox(*)) 40 mg SUBCUT Q24H [facility] Hydrochlorothiazide (Hydrodiuril Tab*) 25 mg PO DAILY [facility] Non-Formulary Medication (Atenolol [Tenormin 100 Mg]) 100 mg PO DAILY [facility] Pto: Butalbital/Aspirin/Caffeine [ Fiorinal 50-325-40 Mg-] 1 Cap 1 cap PO Q6H PRN PRN Reason: HEADACHE Non-Formulary Medication (Calcium Citrate/Vitamin D3 [Citracal + D Maximum Caplet]) 1 tab PO DAILY [facility] Ondansetron HCl (Zofran Tab*) 4 mg PO Q6H PRN PRN Reason: NAUSEA Oxycodone/Acetaminophen (Percocet 5/325 Tab*) 1 tab PO Q4H PRN PRN Reason: Pain Last Admin: 10/27/18 21:50 Dose: 1 tab Pantoprazole Sodium (Protonix Tab*) 40 mg PO DAILY [facility] Potassium Chloride (Klor Con Er Tab*) 10 meq PO DAILY [facility] Vital Signs - 8 hr 10/27/18 10/27/18 10/27/18 16:46 17:43 17:44 Temperature 98.6 F Pulse Rate 72 73 74 Respiratory 16 Rate Blood Pressure 178/90 169/138 (mmHg) O2 Sat by Pulse 97 96 95 Oximetry 10/27/18 10/27/18 10/27/18 18:30 18:43 19:00 Temperature Pulse Rate 69 66 70 Respiratory Rate Blood Pressure 175/81 176/88 (mmHg) O2 Sat by Pulse 94 90 93 Oximetry 10/27/18 10/27/18 10/27/18 19:13 19:44 20:00 Temperature Pulse Rate 72 72 70 Respiratory Rate Blood Pressure 166/74 175/81 (mmHg) O2 Sat by Pulse 92 93 93 Oximetry 10/27/18 10/27/18 20:43 21:50 Temperature Pulse Rate Respiratory 17 Rate Blood Pressure 178/78 (mmHg) O2 Sat by Pulse Oximetry Oxygen Devices in Use Now: None Eyes: No Scleral Icterus, PERRLA Ears/Nose/Mouth/Throat: Clear Oropharnyx Neck: NL Appearance and Movements; NL JVP Respiratory: Symmetrical Chest Expansion and Respiratory Effort, Clear to Auscultation Cardiovascular: NL Sounds; No Murmurs; No JVD, RRR Abdominal: NL Sounds; No Tenderness; No Distention Extremities: No Edema Neurological: Alert and Oriented x 3, NL Sensation, NL Muscle Strength and Tone Result Diagrams: 10/27/18 21:06 10/27/18 21:06 Diagnostic Imaging: MRI L-spine Acute L1 burst fracture EKG Data: Sinus at 70 beats per minute when compared to old EKG 08/23/2018 no significant change. Assess/Plan/Problems-Billing Assessment: Back pain due to Acute L1 Burst Fracture: Elevated WBC unclear etiology: Hypokalemia Hypertension-Uncontrolled. Start pain medications. TLSO Brace placement. Neurosurgon consulted. Replace potassium. UA negative for UTI. CXR no obvious PNA. Restart home BP medications. DVT PPx with lovenox. - Patient Problems (1) Lumbar burst fracture Current Visit: Yes Status: Acute Priority: Medium Onset Date: ~10/27/18 Code(s): S32.001A - STABLE BURST FRACTURE OF UNSP LUMBAR VERTEBRA, INIT SNOMED Code(s): 742689291 (2) Hypokalemia Current Visit: Yes Status: Acute Priority: Low Code(s): E87.6 - HYPOKALEMIA SNOMED Code(s): 58313916 (3) Leukocytosis Current Visit: Yes Status: Acute Priority: Medium Code(s): D72.829 - ELEVATED WHITE BLOOD CELL COUNT, UNSPECIFIED SNOMED Code(s): 003040760 (4) Back pain due to injury Current Visit: Yes Status: Acute Priority: High Code(s): S39.92XA - UNSPECIFIED INJURY OF LOWER BACK, INITIAL ENCOUNTER SNOMED Code(s): 284916294
[2018-10-27 22:23] LABS: Urine Appearance Cloudy; Urine Bacteria 1+ (Absent); Urine Bilirubin Negative (Negative); Urine Blood 1+ (Negative); Urine Color Yellow; Urine Glucose Negative (Negative); Urine Ketones 1+ (Negative); Urine Nitrite Negative (Negative); Urine Protein Negative (Negative); Urine Red Blood Cell 2+(6-10/hpf) (Absent); Urine Specific Gravity 1.014 (1.010-1.030); Urine Urobilinogen Negative (Negative); Urine White Blood Cell Trace(0-5/hpf) (Absent)
[2018-10-27] MEDS ORDERED: NS 0.9% 1000 ML** 1,000 ML IV SCH (22:30)
[2018-10-27] MEDS: Hydrochlorothiazide TAB* 25 MG PO SCH (23:49)
[2018-10-27] MEDS: Enoxaparin(*) 40 MG/0.4 ML SYR SUBCUT SCH (23:50)
[2018-10-27] MEDS: ALPRAZolam TAB* 0.25 MG PO PRN (23:56)
[2018-10-28] MEDS: Ondansetron TAB* 4 MG PO PRN ×3 (00:26→15:45)
[2018-10-28] MEDS: oxyCODONE/Acetamin 5/325 MG* TAB PO PRN ×3 (05:11→20:56)
[2018-10-28 07:24] LABS: ABS Lymphocytes 1.4 10^3/ul (1.0-4.8); ABS Monocytes 1.2 10^3/ul (0-0.8); ABS Neutrophils 7.1 10^3/ul (1.5-7.7); Eosinophil % 0.2 %; Hematocrit 36 % (35-47); Hemoglobin 12.6 g/dL (12.0-16.0); Mean Corpuscular HGB Conc 35 g/dL (31-36); Mean Corpuscular Hemoglobin 32 pg (27-31); Mean Corpuscular Volume 90 fL (80-97); Mean Platelet Volume 8.3 fL (7.4-10.4); Platelet Count 193 10^3/uL (150-450); Red Cell Distribution Width 13 % (10-15); White Blood Count 9.7 10^3/uL (3.5-10.8)
[2018-10-28 07:42] LABS: BUN/Creatinine Ratio 27.8 (8-20); Calcium 8.8 mg/dL (8.6-10.3); EGFR African American 128.9 (>60); EGFR Non-African American 106.5 (>60); Potassium 3.9 mmol/L (3.5-5.0)
[2018-10-28] MEDS: Cholecalciferol TAB* 1000 UNITS PO SCH (08:24)
[2018-10-28] MEDS: Atenolol TAB* 50 MG PO SCH (08:25)
[2018-10-28] MEDS: Calcium/Vitamin D TAB 250/125* TAB PO SCH (08:25)
[2018-10-28] MEDS: Pantoprazole TAB * 40 MG TAB PO SCH (08:25)
[2018-10-28] MEDS: amLODIPine TAB* 5 MG PO SCH (08:25)
[2018-10-28] MEDS: Potassium Chlor TAB* 10 MEQ TAB.ER PO SCH (08:25)
[2018-10-28] MEDS: Hydrochlorothiazide TAB* 25 MG PO SCH (08:25)
--- NOTE | 2018-10-28 10:07 | CONS ---
CONSULTATION NOTE: DATE OF CONSULT: 10/27/18 HISTORY OF PRESENT ILLNESS: The patient is a very pleasant 88-year-old female with a history of hypertension, hyperlipidemia, osteoporosis and history of left posterior fossa small meningioma that was reported because she sustained a fall this morning. The patient reported that she tried to cloth picker her dog when she fell down. She had no loss of consciousness. She reports that she has no neck pain. She has mild back pain. She denies any weakness, numbness, or tingling of her extremities. She was able to ambulate after the fall and she was ambulating at her baseline. The patient denies any urinary or GI incontinence, although she has at baseline urinary stress incontinence. The patient living with her son and she is accompanied by her son and her daughter. PAST MEDICAL HISTORY: As stated above. PAST SURGICAL HISTORY: 1. Hysterectomy. 2. 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 3. Bilateral cataract surgery. ALLERGIES: AZITHROMYCIN. FAMILY HISTORY: Noncontributory. SOCIAL HISTORY: Tobacco: Negative. Alcohol: Negative. Recreational drug use : Negative. PHYSICAL EXAM: The patient is not in acute distress. Awake, alert, oriented x3. Her pupils are equal and reactive. Cranial nerves II through XII are grossly intact. There is decreased hearing bilaterally. This is her baseline. Motor 4 to 5/5 in all extremities. No pronator drift. Sensory grossly intact to light touch. Deep tendon reflexes +1 bilaterally. No clonus. No Babinski. Jenae's was negative. Straight-leg raise negative in the sitting position. The patient is nontender to palpation of the thoracic and lumbar spine. She has good range of motion in the cervical spine. DIAGNOSTIC STUDIES/LAB DATA: The patient had a CT scan of the brain revealing postoperative changes in the left acoustic neuroma and also mild amount of posterior parietal defect on the left lobe, which was present in the previous studies and associated with small fossa meningioma. The patient also had a CT scan of the cervical spine revealing degenerative disk disease without evidence of fracture or subluxation. There is either sesamoid bone or old injury more specifically to the posterior ligament of the C6 spinous process. The patient also had a CT scan of the thoracic spine that revealed degenerative disk disease without evidence of fractures or subluxation in the thoracic spine. The patient had also a CT scan of the lumbar spine revealing L1 burst fracture with mild loss of height with minimal retropulsion approximately 5 mm off the central canal. The patient had an MRI of her lumbar spine revealing increased posterior superior signal changes of the L1 vertebral body consistent with acute fracture while there is no evidence of posterior ligament complex injury. IMPRESSION: The patient is a very pleasant 88-year-old female status post fall with L1 burst fracture. PLAN: The patient at this point is doing quite well. She is neurovascularly stable. We discussed about different options including surgical intervention versus conservative treatment with brace and discussed possible problems of both approaches. The patient at this point would not like to proceed with surgical intervention, understanding the implications of her decision. We will be happy to obtain upright x-rays application of TLSO brace. Full instructions given to the patient. Patient is currently admitted by by the hospitalist service. [id number]/CPS #: [id number] ISAC
--- NOTE | 2018-10-28 14:53 | PN ---
Subjective Date of Service: 10/28/18 Interval History: HOSPITALIST PROGRESS NOTE Patient seen and examined at bedside. Care reviewed and d/w Madeleine Nunez RN. She feels well today. Denies back pain "as long as I don't move". Family History: Unchanged from Admission - Non-Contributary at her age. Social History: Unchanged from Admission - Quit Smoking 53 years ago. Son lives at her home. Past Medical History: Unchanged from Admission Objective Active Medications: Acetaminophen (Tylenol Tab*) 650 mg PO Q4H PRN PRN Reason: FEVER/PAIN Alprazolam (Xanax Tab*) 0.25 mg PO TID PRN PRN Reason: ANXIETY Last Admin: 10/27/18 23:56 Dose: 0.25 mg Amlodipine Besylate (Norvasc Tab*) 5 mg PO DAILY [facility] Last Admin: 10/28/18 08:25 Dose: 5 mg Atenolol (Tenormin Tab*) 100 mg PO DAILY [facility] Last Admin: 10/28/18 08:25 Dose: 100 mg Atorvastatin Calcium (Lipitor*) 20 mg PO 1700 [facility] Calcium/Vitamin D (Oscal D Tab 250/125*) 1 tab PO DAILY [facility] Last Admin: 10/28/18 08:25 Dose: 1 tab Cholecalciferol (Vitamin D Tab*) 1,000 units PO DAILY [facility] Last Admin: 10/28/18 08:24 Dose: 1,000 units Enoxaparin Sodium (Lovenox(*)) 40 mg SUBCUT Q24H [facility] Last Admin: 10/27/18 23:50 Dose: 40 mg Hydrochlorothiazide (Hydrodiuril Tab*) 25 mg PO DAILY [facility] Last Admin: 10/28/18 08:25 Dose: 25 mg Pto: Butalbital/Aspirin/Caffeine [ Fiorinal 50-325-40 Mg-] 1 Cap 1 cap PO Q6H PRN PRN Reason: HEADACHE Ondansetron HCl (Zofran Tab*) 4 mg PO Q6H PRN PRN Reason: NAUSEA Last Admin: 10/28/18 08:36 Dose: 4 mg Oxycodone/Acetaminophen (Percocet 5/325 Tab*) 1 tab PO Q4H PRN PRN Reason: Pain Last Admin: 10/28/18 11:19 Dose: 1 tab Pantoprazole Sodium (Protonix Tab*) 40 mg PO DAILY [facility] Last Admin: 10/28/18 08:25 Dose: 40 mg Potassium Chloride (Klor Con Er Tab*) 10 meq PO DAILY [facility] Last Admin: 10/28/18 08:25 Dose: 10 meq Vital Signs - 8 hr 10/28/18 10/28/18 10/28/18 08:05 09:56 11:19 Temperature 97.6 F Pulse Rate 66 Respiratory 16 16 16 Rate Blood Pressure 136/58 (mmHg) O2 Sat by Pulse 95 Oximetry 10/28/18 10/28/18 11:38 14:24 Temperature 97.7 F Pulse Rate 65 Respiratory 16 16 Rate Blood Pressure 144/59 (mmHg) O2 Sat by Pulse 91 Oximetry Oxygen Devices in Use Now: None Appearance: Pleasant elderly lady lying in bed in NAD Eyes: No Scleral Icterus Ears/Nose/Mouth/Throat: Mucous Membranes Moist Neck: Trachea Midline Respiratory: Symmetrical Chest Expansion and Respiratory Effort, Clear to Auscultation Cardiovascular: RRR - Normal S1 and S2 Abdominal: NL Sounds; No Tenderness; No Distention Neurological: Alert and Oriented x 3, NL Sensation, NL Muscle Strength and Tone Result Diagrams: 10/28/18 06:13 10/28/18 06:13 Assess/Plan/Problems-Billing Assessment: Mrs Cantrell is an 88yo F with PMH of Hypertension, Dyslipidemia, Osteoporosis , Anxiety, Hysterectomy, Acustic Neuroma, Brain stem tumors; who presented to ED after sustaining a mechanical fall, found to have L1 fracture. - Patient Problems (1) L1 vertebral fracture Comment: - MRI shows mild decrease of L1 height, with acute burst fracture. - Neurosurgery input appreciated - recommended conservative approach with TLSO. - She's on bedrest for now. When brace arrives, will check upright xrays. - Will request PT eval after brace applied. (2) Leukocytosis Comment: - Present on admission, likely secondary to stress from fall. - No signs of infection. - Resolved. (3) Hypokalemia Comment: - Resolved. (4) HTN (hypertension) Comment: - Controlled. - Continue Amlodipine, Atenolol, HCTZ. (5) Hyperlipidemia Comment: - Continue statin. (6) DVT prophylaxis Comment: - Lovenox. (7) Full code status Status and Disposition: OBV.
[2018-10-28] MEDS: Atorvastatin* 20 MG TAB PO SCH (15:45)
[2018-10-28] MEDS ORDERED: Ondansetron INJ* 2 MG/ML VIAL ONE (20:48)
[2018-10-28] MEDS: ALPRAZolam TAB* 0.25 MG PO PRN (20:56)
[2018-10-28] MEDS: Ondansetron INJ* 2 MG/ML VIAL IV PRN (20:57)
[2018-10-28] MEDS: Enoxaparin(*) 40 MG/0.4 ML SYR SUBCUT SCH (22:33)
--- NOTE | 2018-10-28 23:24 | PN ---
Progress Note - Progress Note Date of Service: 10/28/18 Note: No surgical intervention recommended at this time, recommend upright standing X rays of the lumbar spine in TLSO brace. The mechanism of injury is still not clearly understood, if patient experienced trauma additional studies is recommended.
--- NOTE | 2018-10-28 23:55 | PN ---
Progress Note - Progress Note Date of Service: 10/28/18 SOAP: Subjective: []Patient seen and examined today. No events On Objective: []Simone MATTHEWS Follows command Sensory grossly intact to light touch Assessment: []88 yof fall L1 # Plan: []TLSO brace Upright XR in brace if tolerated. Appreciate IM care Felipa Thompson MD
[2018-10-29] MEDS: oxyCODONE/Acetamin 5/325 MG* TAB PO PRN ×3 (01:58→20:28)
[2018-10-29] MEDS: Ondansetron TAB* 4 MG PO PRN (01:58)
[2018-10-29] MEDS: Ondansetron INJ* 2 MG/ML VIAL IV PRN ×2 (06:52→12:24)
[2018-10-29] MEDS: amLODIPine TAB* 5 MG PO SCH (07:28)
[2018-10-29] MEDS: Atenolol TAB* 50 MG PO SCH (07:28)
[2018-10-29] MEDS: Hydrochlorothiazide TAB* 25 MG PO SCH (07:28)
[2018-10-29] MEDS: Calcium/Vitamin D TAB 250/125* TAB PO SCH (07:28)
[2018-10-29] MEDS: Potassium Chlor TAB* 10 MEQ TAB.ER PO SCH (07:28)
[2018-10-29] MEDS: Pantoprazole TAB * 40 MG TAB PO SCH (07:28)
[2018-10-29] MEDS: Cholecalciferol TAB* 1000 UNITS PO SCH (07:28)
[2018-10-29] MEDS: Polyethylene Glycol 3350* 17 GM PACKET PO SCH ×2 (08:48→22:44)
[2018-10-29] MEDS: Acetaminophen TAB* 325 MG PO PRN ×2 (12:24→22:55)
[2018-10-29] MEDS: Magnesium Hydroxide LIQ* 30 ML UDC PO PRN (14:06)
[2018-10-29] MEDS: Atorvastatin* 20 MG TAB PO SCH (16:49)
--- NOTE | 2018-10-29 18:48 | PN ---
Subjective Date of Service: 10/29/18 Interval History: HOSPITALIST PROGRESS NOTE Patient seen and examined at bedside. Care reviewed and d/w Christy Maynard RN. She denies pain while lying in bed, but has it with movement in bed. C/o nausea , but states this is chronic. Family History: Unchanged from Admission - Non-Contributary at her age. Social History: Unchanged from Admission - Quit Smoking 53 years ago. Son lives at her home. Past Medical History: Unchanged from Admission Objective Active Medications: Acetaminophen (Tylenol Tab*) 650 mg PO Q4H PRN PRN Reason: FEVER/PAIN Last Admin: 10/29/18 12:24 Dose: 650 mg Alprazolam (Xanax Tab*) 0.25 mg PO TID PRN PRN Reason: ANXIETY Last Admin: 10/28/18 20:56 Dose: 0.25 mg Amlodipine Besylate (Norvasc Tab*) 5 mg PO DAILY [facility] Last Admin: 10/29/18 07:28 Dose: 5 mg Atenolol (Tenormin Tab*) 100 mg PO DAILY [facility] Last Admin: 10/29/18 07:28 Dose: 100 mg Atorvastatin Calcium (Lipitor*) 20 mg PO 1700 [facility] Last Admin: 10/29/18 16:49 Dose: 20 mg Calcium/Vitamin D (Oscal D Tab 250/125*) 1 tab PO DAILY [facility] Last Admin: 10/29/18 07:28 Dose: 1 tab Cholecalciferol (Vitamin D Tab*) 1,000 units PO DAILY [facility] Last Admin: 10/29/18 07:28 Dose: 1,000 units Enoxaparin Sodium (Lovenox(*)) 40 mg SUBCUT Q24H [facility] Last Admin: 10/28/18 22:33 Dose: 40 mg Hydrochlorothiazide (Hydrodiuril Tab*) 25 mg PO DAILY [facility] Last Admin: 10/29/18 07:28 Dose: 25 mg Magnesium Hydroxide (Milk Of Magnesia Liq*) 30 ml PO Q6H PRN PRN Reason: CONSTIPATION Last Admin: 10/29/18 14:06 Dose: 30 ml Pto: Butalbital/Aspirin/Caffeine [ Fiorinal 50-325-40 Mg-] 1 Cap 1 cap PO Q6H PRN PRN Reason: HEADACHE Ondansetron HCl (Zofran Tab*) 4 mg PO Q6H PRN PRN Reason: NAUSEA Last Admin: 10/29/18 01:58 Dose: 4 mg Ondansetron HCl (Zofran Inj*) 4 mg IV Q6H PRN PRN Reason: NAUSEA Last Admin: 10/29/18 12:24 Dose: 4 mg Oxycodone/Acetaminophen (Percocet 5/325 Tab*) 1 tab PO Q4H PRN PRN Reason: Pain Last Admin: 10/29/18 08:48 Dose: 1 tab Pantoprazole Sodium (Protonix Tab*) 40 mg PO DAILY [facility] Last Admin: 10/29/18 07:28 Dose: 40 mg Polyethylene Glycol/Electrolytes (Miralax*) 17 gm PO 0800,2100 [facility] Last Admin: 10/29/18 08:48 Dose: 17 gm Potassium Chloride (Klor Con Er Tab*) 10 meq PO DAILY [facility] Last Admin: 10/29/18 07:28 Dose: 10 meq Vital Signs - 8 hr 10/29/18 10/29/18 11:06 15:54 Temperature 98.9 F 98.1 F Pulse Rate 61 64 Respiratory 16 16 Rate Blood Pressure 149/57 140/61 (mmHg) O2 Sat by Pulse 92 93 Oximetry Oxygen Devices in Use Now: None Appearance: Elderly lady lying in bed in [facility]. Eyes: No Scleral Icterus Ears/Nose/Mouth/Throat: Mucous Membranes Moist Neck: Trachea Midline Respiratory: Symmetrical Chest Expansion and Respiratory Effort, Clear to Auscultation Cardiovascular: RRR - Normal S1 and S2 Neurological: Alert and Oriented x 3, NL Muscle Strength and Tone Result Diagrams: 10/28/18 06:13 10/28/18 06:13 Assess/Plan/Problems-Billing Assessment: Mrs Cantrell is an 88yo F with PMH of Hypertension, Dyslipidemia, Osteoporosis , Anxiety, Hysterectomy, Acustic Neuroma, Brain stem tumors; who presented to ED after sustaining a mechanical fall, found to have L1 fracture. - Patient Problems (1) L1 vertebral fracture Comment: - MRI shows mild decrease of L1 height, with acute burst fracture. - Neurosurgery input appreciated - recommended conservative approach with TLSO. - She's on bedrest for now. Awaiting brace arrives - plan for upright xrays with brace if she can tolerate standing up. - Will request PT eval after brace applied. (2) Leukocytosis Comment: - Present on admission, likely secondary to stress from fall. - No signs of infection. - Resolved. (3) Hypokalemia Comment: - Resolved. (4) HTN (hypertension) Comment: - Controlled. - Continue Amlodipine, Atenolol, HCTZ. (5) Hyperlipidemia Comment: - Continue statin. (6) DVT prophylaxis Comment: - Lovenox. (7) Full code status Status and Disposition: OBV. Daughter updated at bedside.
[2018-10-29] MEDS: ALPRAZolam TAB* 0.25 MG PO PRN (20:27)
--- NOTE | 2018-10-29 20:27 | PN ---
Progress Note - Progress Note Date of Service: 10/29/18 Note: Patient has brace at bed side, need to be properly fitted and have patient complete standing AP Lateral X rays of lumbar spine. If there are no issues patients neurosurgery will sign off, but ji be available if needed.
[2018-10-29] MEDS: Enoxaparin(*) 40 MG/0.4 ML SYR SUBCUT SCH (22:44)
[2018-10-30] MEDS: Ondansetron INJ* 2 MG/ML VIAL IV PRN ×2 (03:56→21:37)
[2018-10-30] MEDS: oxyCODONE/Acetamin 5/325 MG* TAB PO PRN (07:34)
[2018-10-30] MEDS: Polyethylene Glycol 3350* 17 GM PACKET PO SCH ×2 (08:51→20:46)
[2018-10-30] MEDS: Cholecalciferol TAB* 1000 UNITS PO SCH (08:56)
[2018-10-30] MEDS: Atenolol TAB* 50 MG PO SCH (08:56)
[2018-10-30] MEDS: Hydrochlorothiazide TAB* 25 MG PO SCH (08:56)
[2018-10-30] MEDS: Pantoprazole TAB * 40 MG TAB PO SCH (08:57)
[2018-10-30] MEDS: Potassium Chlor TAB* 10 MEQ TAB.ER PO SCH (08:57)
[2018-10-30] MEDS: amLODIPine TAB* 5 MG PO SCH (08:57)
[2018-10-30] MEDS: Calcium/Vitamin D TAB 250/125* TAB PO SCH (08:57)
[2018-10-30] MEDS: Ondansetron TAB* 4 MG PO PRN ×2 (09:18→16:22)
[2018-10-30] MEDS ORDERED: HYDROcodone/ACETAMIN 5-325 MG* 1 TAB PO PRN (10:20)
--- NOTE | 2018-10-30 10:44 | PN ---
Subjective Date of Service: 10/30/18 Interval History: C/O urinary frequency. C/O has nausea, not pain. Family History: Unchanged from Admission - Non-Contributary at her age. Social History: Unchanged from Admission - Quit Smoking 53 years ago. Son lives at her home. Past Medical History: Unchanged from Admission Objective Active Medications: Acetaminophen (Tylenol Tab*) 650 mg PO Q4H PRN PRN Reason: FEVER/PAIN Last Admin: 10/29/18 22:55 Dose: 650 mg Hydrocodone Bitart/Acetaminophen ([place] 5-325 Tab*) 1 tab PO Q4H PRN PRN Reason: PAIN Alprazolam (Xanax Tab*) 0.25 mg PO TID PRN PRN Reason: ANXIETY Last Admin: 10/29/18 20:27 Dose: 0.25 mg Amlodipine Besylate (Norvasc Tab*) 5 mg PO DAILY [facility] Last Admin: 10/30/18 08:57 Dose: 5 mg Atenolol (Tenormin Tab*) 100 mg PO DAILY [facility] Last Admin: 10/30/18 08:56 Dose: 100 mg Atorvastatin Calcium (Lipitor*) 20 mg PO 1700 [facility] Last Admin: 10/29/18 16:49 Dose: 20 mg Calcium/Vitamin D (Oscal D Tab 250/125*) 1 tab PO DAILY [facility] Last Admin: 10/30/18 08:57 Dose: 1 tab Cholecalciferol (Vitamin D Tab*) 1,000 units PO DAILY [facility] Last Admin: 10/30/18 08:56 Dose: 1,000 units Enoxaparin Sodium (Lovenox(*)) 40 mg SUBCUT Q24H [facility] Last Admin: 10/29/18 22:44 Dose: 40 mg Hydrochlorothiazide (Hydrodiuril Tab*) 25 mg PO DAILY [facility] Last Admin: 10/30/18 08:56 Dose: 25 mg Magnesium Hydroxide (Milk Of Magnesia Liq*) 30 ml PO Q6H PRN PRN Reason: CONSTIPATION Last Admin: 10/29/18 14:06 Dose: 30 ml Pto: Butalbital/Aspirin/Caffeine [ Fiorinal 50-325-40 Mg-] 1 Cap 1 cap PO Q6H PRN PRN Reason: HEADACHE Ondansetron HCl (Zofran Tab*) 4 mg PO Q6H PRN PRN Reason: NAUSEA Last Admin: 10/30/18 09:18 Dose: 4 mg Ondansetron HCl (Zofran Inj*) 4 mg IV Q6H PRN PRN Reason: NAUSEA Last Admin: 10/30/18 03:56 Dose: 4 mg Pantoprazole Sodium (Protonix Tab*) 40 mg PO DAILY [facility] Last Admin: 10/30/18 08:57 Dose: 40 mg Polyethylene Glycol/Electrolytes (Miralax*) 17 gm PO 0800,2100 [facility] Last Admin: 10/30/18 08:51 Dose: 17 gm Potassium Chloride (Klor Con Er Tab*) 10 meq PO DAILY [facility] Last Admin: 10/30/18 08:57 Dose: 10 meq Vital Signs - 8 hr 10/30/18 10/30/18 07:15 07:34 Temperature 98.0 F Pulse Rate 70 Respiratory 18 20 Rate Blood Pressure 145/64 (mmHg) O2 Sat by Pulse 94 Oximetry Oxygen Devices in Use Now: None Appearance: Alert, partly up in bed. Neutral affect, looks comfortable. Eyes: No Scleral Icterus Extremities: No Edema, No Clubbing, Cyanosis, - Skin: No Rash or Ulcers, No Nodules or Sclerosis, - Neurological: Alert and Oriented x 3, NL Sensation - Diminished hearing. UMANZOR. Result Diagrams: 10/28/18 06:13 10/28/18 06:13 Microbiology and Other Data: Microbiology 10/27/18 22:11 Urine Culture - Final Urine No Growth (<1,000 CFU/mL) Diagnostic Imaging: MRI L-spine Acute L1 burst fracture EKG Data: Sinus at 70 beats per minute when compared to old EKG 08/23/2018 no significant change. Assess/Plan/Problems-Billing Assessment: Mrs Cantrell is an 88yo F with PMH of Hypertension, Dyslipidemia, Osteoporosis , Anxiety, Hysterectomy, Acustic Neuroma, Brain stem tumors; who presented to ED after sustaining a mechanical fall, found to have L1 fracture. - Patient Problems (1) L1 vertebral fracture Current Visit: Yes Status: Acute Code(s): S32.019A - UNSP FRACTURE OF FIRST LUMBAR VERTEBRA, INIT FOR CLOS FX SNOMED Code(s): 658496648 Comment: - MRI shows mild decrease of L1 height, with acute burst fracture. - Neurosurgery input appreciated - recommended conservative approach with TLSO. - She's on bedrest for now. Had AP X-ray sitting with brace on. If this is not adequate could try for standing XRay 10/31. PT eval pending. (2) Leukocytosis Current Visit: Yes Status: Acute Priority: Medium Code(s): D72.829 - ELEVATED WHITE BLOOD CELL COUNT, UNSPECIFIED SNOMED Code(s): 945133780 Comment: - Present on admission, likely secondary to stress from fall. - No signs of infection. - Resolved. (3) HTN (hypertension) Current Visit: Yes Status: Acute Code(s): I10 - ESSENTIAL (PRIMARY) HYPERTENSION SNOMED Code(s): 23570739 Comment: - Controlled. - Continue Amlodipine, Atenolol, HCTZ. (4) Hypokalemia Current Visit: Yes Status: Acute Priority: Low Code(s): E87.6 - HYPOKALEMIA SNOMED Code(s): 46241153 Comment: - Resolved. (5) Hyperlipidemia Current Visit: Yes Status: Acute Code(s): E78.5 - HYPERLIPIDEMIA, UNSPECIFIED SNOMED Code(s): 47392545 Comment: - Continue statin. Status and Disposition: OBV. Daughter updated at bedside.
[2018-10-30] MEDS ORDERED: Simethicone TAB* 80 MG TAB.CHEW PO PRN (12:32)
[2018-10-30] MEDS: Al Hydrox/Mg Hydrox/Simet LIQ* 30 ML UDC PO PRN (13:10)
[2018-10-30] MEDS: ALPRAZolam TAB* 0.25 MG PO PRN ×2 (13:11→23:07)
[2018-10-30 14:39] LABS: Urine Appearance Cloudy; Urine Bacteria 1+ (Absent); Urine Bilirubin Negative (Negative); Urine Blood 1+ (Negative); Urine Color Yellow; Urine Glucose Negative (Negative); Urine Ketones 1+ (Negative); Urine Nitrite Positive (Negative); Urine Protein Negative (Negative); Urine Red Blood Cell Trace(0-2/hpf) (Absent); Urine Specific Gravity 1.008 (1.010-1.030); Urine Squamous Epithelial Cell Present (Absent); Urine Urobilinogen Negative (Negative); Urine White Blood Cell 2+(11-20/hpf) (Absent)
[2018-10-30] MEDS: Atorvastatin* 20 MG TAB PO SCH (16:22)
[2018-10-30] MEDS: traMADol TAB* 50 MG PO PRN (16:46)
[2018-10-30] MEDS: Enoxaparin(*) 40 MG/0.4 ML SYR SUBCUT SCH (21:29)
[2018-10-31] MEDS: Acetaminophen TAB* 325 MG PO PRN ×2 (03:41→19:26)
[2018-10-31] MEDS: traMADol TAB* 50 MG PO PRN ×4 (03:59→21:26)
[2018-10-31] MEDS: ALPRAZolam TAB* 0.25 MG PO PRN ×2 (06:48→21:31)
[2018-10-31] MEDS: Ondansetron INJ* 2 MG/ML VIAL IV PRN ×2 (06:49→11:27)
[2018-10-31] MEDS: Pantoprazole TAB * 40 MG TAB PO SCH (09:56)
[2018-10-31] MEDS: Hydrochlorothiazide TAB* 25 MG PO SCH (09:56)
[2018-10-31] MEDS: Atenolol TAB* 50 MG PO SCH (09:57)
[2018-10-31] MEDS: Potassium Chlor TAB* 10 MEQ TAB.ER PO SCH (09:57)
[2018-10-31] MEDS: amLODIPine TAB* 5 MG PO SCH (09:57)
[2018-10-31] MEDS: Cholecalciferol TAB* 1000 UNITS PO SCH (09:57)
[2018-10-31] MEDS: Polyethylene Glycol 3350* 17 GM PACKET PO SCH ×2 (09:57→21:27)
[2018-10-31] MEDS: Calcium/Vitamin D TAB 250/125* TAB PO SCH (09:57)
[2018-10-31] MEDS: Al Hydrox/Mg Hydrox/Simet LIQ* 30 ML UDC PO PRN (10:18)
[2018-10-31] MEDS: Prochlorperazine TAB* 10 MG PO PRN (16:33)
[2018-10-31] MEDS: Atorvastatin* 20 MG TAB PO SCH (16:33)
--- NOTE | 2018-10-31 16:55 | PN ---
Subjective Date of Service: 10/31/18 Interval History: No acute events overnight, afebrile. Thinks po zofran worked better than IV zofran. Near continuous nausea per RN ( denied current nausea to me). Compazine added. Got up twice this AM, working with OT. No stairs yet this AM. No chest pain, abdominal pain, f/c/n/v. Talked with son Torey and daughter Crys at bedside. Family History: Unchanged from Admission - Non-Contributary at her age. Social History: Unchanged from Admission - Quit Smoking 53 years ago. Son lives at her home. Past Medical History: Unchanged from Admission Objective Active Medications: Acetaminophen (Tylenol Tab*) 650 mg PO Q4H PRN PRN Reason: FEVER/PAIN Last Admin: 10/31/18 03:41 Dose: 650 mg Al Hydrox/Mg Hydrox/Simethicone (Maalox Plus*) 30 ml PO Q4H PRN PRN Reason: DYSPEPSIA Last Admin: 10/31/18 10:18 Dose: 30 ml Alprazolam (Xanax Tab*) 0.25 mg PO TID PRN PRN Reason: ANXIETY Last Admin: 10/31/18 06:48 Dose: 0.25 mg Amlodipine Besylate (Norvasc Tab*) 5 mg PO DAILY [facility] Last Admin: 10/31/18 09:57 Dose: 5 mg Atenolol (Tenormin Tab*) 100 mg PO DAILY [facility] Last Admin: 10/31/18 09:57 Dose: 100 mg Atorvastatin Calcium (Lipitor*) 20 mg PO 1700 [facility] Last Admin: 10/31/18 16:33 Dose: 20 mg Calcium/Vitamin D (Oscal D Tab 250/125*) 1 tab PO DAILY [facility] Last Admin: 10/31/18 09:57 Dose: 1 tab Cholecalciferol (Vitamin D Tab*) 1,000 units PO DAILY [facility] Last Admin: 10/31/18 09:57 Dose: 1,000 units Enoxaparin Sodium (Lovenox(*)) 40 mg SUBCUT Q24H [facility] Last Admin: 10/30/18 21:29 Dose: 40 mg Hydrochlorothiazide (Hydrodiuril Tab*) 25 mg PO DAILY [facility] Last Admin: 10/31/18 09:56 Dose: 25 mg Magnesium Hydroxide (Milk Of Magnesia Liq*) 30 ml PO Q6H PRN PRN Reason: CONSTIPATION Last Admin: 10/29/18 14:06 Dose: 30 ml Pto: Butalbital/Aspirin/Caffeine [ Fiorinal 50-325-40 Mg-] 1 Cap 1 cap PO Q6H PRN PRN Reason: HEADACHE Ondansetron HCl (Zofran Tab*) 4 mg PO Q6H PRN PRN Reason: NAUSEA Last Admin: 10/30/18 16:22 Dose: 4 mg Ondansetron HCl (Zofran Inj*) 4 mg IV Q6H PRN PRN Reason: NAUSEA Last Admin: 10/31/18 11:27 Dose: 4 mg Pantoprazole Sodium (Protonix Tab*) 40 mg PO DAILY [facility] Last Admin: 10/31/18 09:56 Dose: 40 mg Polyethylene Glycol/Electrolytes (Miralax*) 17 gm PO 0800,2100 [facility] Last Admin: 10/31/18 09:57 Dose: 17 gm Potassium Chloride (Klor Con Er Tab*) 10 meq PO DAILY [facility] Last Admin: 10/31/18 09:57 Dose: 10 meq Prochlorperazine (Compazine Tab*) 10 mg PO Q8HR PRN PRN Reason: NAUSEA Last Admin: 10/31/18 16:33 Dose: 10 mg Tramadol HCl (Ultram*) 50 mg PO Q6H PRN PRN Reason: PAIN Last Admin: 10/31/18 16:33 Dose: 50 mg Vital Signs - 8 hr 10/31/18 10/31/18 10/31/18 10:36 11:15 13:00 Temperature 97.8 F Pulse Rate 67 Respiratory 18 14 16 Rate Blood Pressure 173/62 (mmHg) O2 Sat by Pulse 92 Oximetry 10/31/18 10/31/18 15:30 16:33 Temperature 97.7 F Pulse Rate 65 Respiratory 22 16 Rate Blood Pressure 165/64 (mmHg) O2 Sat by Pulse 95 Oximetry Oxygen Devices in Use Now: None Appearance: NAD but debilitated appearing. Eyes: No Scleral Icterus Ears/Nose/Mouth/Throat: NL Teeth, Lips, Gums Neck: NL Appearance and Movements; NL JVP Respiratory: Symmetrical Chest Expansion and Respiratory Effort, Clear to Auscultation Cardiovascular: NL Sounds; No Murmurs; No JVD, RRR Abdominal: NL Sounds; No Tenderness; No Distention, No Hepatosplenomegaly Extremities: No Edema Skin: No Rash or Ulcers Neurological: Alert and Oriented x 3 Nutrition: Taking PO's Result Diagrams: 10/28/18 06:13 10/28/18 06:13 Microbiology and Other Data: Microbiology 10/30/18 13:00 Urine Urine Culture - Preliminary Escherichia Coli 10/27/18 22:11 Urine Urine Culture - Final No Growth (<1,000 CFU/mL) Diagnostic Imaging: MRI L-spine Acute L1 burst fracture EKG Data: Sinus at 70 beats per minute when compared to old EKG 08/23/2018 no significant change. Assess/Plan/Problems-Billing Assessment: Mrs Cantrell is an 88yo F with PMH of Hypertension, Dyslipidemia, Osteoporosis , Anxiety, Hysterectomy, Acustic Neuroma, Brain stem tumors; who presented to ED after sustaining a mechanical fall, found to have burst L1 fracture. Likely will need RALF. - Patient Problems (1) L1 vertebral fracture Current Visit: Yes Status: Acute Code(s): S32.019A - UNSP FRACTURE OF FIRST LUMBAR VERTEBRA, INIT FOR CLOS FX SNOMED Code(s): 946082070 Comment: - MRI shows mild decrease of L1 height, with acute burst fracture. - Neurosurgery input appreciated - recommended conservative approach with TLSO. - Activity advanced to as tolerated (with TLSO if not in bed). AP Lumbar X-ray standing with brace obtained. - continue PT/OT eval. Needs to test for stairs but family and this provider think would do best in RALF for rehab as she has not been able to apply TLSO on herself. Lives in split level with multiple stairs and son works during the day. (2) HTN (hypertension) Current Visit: Yes Status: Acute Code(s): I10 - ESSENTIAL (PRIMARY) HYPERTENSION SNOMED Code(s): 20574266 Comment: - 150-170s - Continue Atenolol 100mg daily, HCTZ 25mg . - increase amlodipine form 5mg to 10mg daily (extra 5mg now) (3) Hyperlipidemia Current Visit: Yes Status: Acute Code(s): E78.5 - HYPERLIPIDEMIA, UNSPECIFIED SNOMED Code(s): 35883500 Comment: - Continue atorvastatin 20mg (4) Leukocytosis Current Visit: Yes Status: Acute Priority: Medium Code(s): D72.829 - ELEVATED WHITE BLOOD CELL COUNT, UNSPECIFIED SNOMED Code(s): 663491082 Comment: - Present on admission, likely secondary to stress from fall. - Repeat (10/30) UCx with 100K Ecoli, CFTX started given her weakness. - Resolved. (5) Full code status Current Visit: Yes Status: Acute Code(s): Z78.9 - OTHER SPECIFIED HEALTH STATUS SNOMED Code(s): 832788728 Status and Disposition: medicine inpatient. Likely will need RALF.
[2018-10-31] MEDS ORDERED: amLODIPine TAB* 5 MG PO ONE (17:03)
[2018-10-31] MEDS: cefTRIAXone(*) 1 GM in NS 0.9% 50 ML* 50 ML IVPB SCH (18:52)
[2018-10-31] MEDS: Ondansetron TAB* 4 MG PO PRN (21:26)
[2018-10-31] MEDS: Enoxaparin(*) 40 MG/0.4 ML SYR SUBCUT SCH (21:27)
[2018-11-01] MEDS: Acetaminophen TAB* 325 MG PO PRN ×2 (04:00→17:02)
[2018-11-01] MEDS: Ondansetron TAB* 4 MG PO PRN ×2 (06:26→12:56)
[2018-11-01] MEDS: ALPRAZolam TAB* 0.25 MG PO PRN ×2 (06:26→12:56)
[2018-11-01] MEDS: Cholecalciferol TAB* 1000 UNITS PO SCH (09:23)
[2018-11-01] MEDS: Potassium Chlor TAB* 10 MEQ TAB.ER PO SCH (09:23)
[2018-11-01] MEDS: amLODIPine TAB* 5 MG PO SCH (09:23)
[2018-11-01] MEDS: Pantoprazole TAB * 40 MG TAB PO SCH (09:23)
[2018-11-01] MEDS: Hydrochlorothiazide TAB* 25 MG PO SCH (09:23)
[2018-11-01] MEDS: Polyethylene Glycol 3350* 17 GM PACKET PO SCH (09:23)
[2018-11-01] MEDS: Atenolol TAB* 50 MG PO SCH (09:23)
[2018-11-01] MEDS: Calcium/Vitamin D TAB 250/125* TAB PO SCH (09:24)
[2018-11-01] MEDS: Ondansetron INJ* 2 MG/ML VIAL IV PRN (09:29)
[2018-11-01] MEDS: Prochlorperazine TAB* 10 MG PO PRN (09:29)
[2018-11-01] MEDS: Magnesium Hydroxide LIQ* 30 ML UDC PO PRN (09:34)
[2018-11-01] MEDS ORDERED: Magnesium CITRATE* 300 ML BTL PO ONE (10:23)
[2018-11-01] MEDS ORDERED: Sodium Phosphate ADULT ENEMA* 118 ml bottle PR ONE (10:23)
--- NOTE | 2018-11-01 11:45 | PN ---
Subjective Date of Service: 11/01/18 Interval History: Pain control is adequate. Large BM today. Nausea improved, still ate little so far. Never tried Ensure. Family History: Unchanged from Admission - Non-Contributary at her age. Social History: Unchanged from Admission - Quit Smoking 53 years ago. Son lives at her home. Past Medical History: Unchanged from Admission Objective Active Medications: Acetaminophen (Tylenol Tab*) 650 mg PO Q4H PRN PRN Reason: FEVER/PAIN Last Admin: 11/01/18 04:00 Dose: 650 mg Al Hydrox/Mg Hydrox/Simethicone (Maalox Plus*) 30 ml PO Q4H PRN PRN Reason: DYSPEPSIA Last Admin: 10/31/18 10:18 Dose: 30 ml Alprazolam (Xanax Tab*) 0.25 mg PO TID PRN PRN Reason: ANXIETY Last Admin: 11/01/18 06:26 Dose: 0.25 mg Amlodipine Besylate (Norvasc Tab*) 10 mg PO DAILY [facility] Last Admin: 11/01/18 09:23 Dose: 10 mg Atenolol (Tenormin Tab*) 100 mg PO DAILY [facility] Last Admin: 11/01/18 09:23 Dose: 100 mg Atorvastatin Calcium (Lipitor*) 20 mg PO 1700 [facility] Last Admin: 10/31/18 16:33 Dose: 20 mg Calcium/Vitamin D (Oscal D Tab 250/125*) 1 tab PO DAILY [facility] Last Admin: 11/01/18 09:24 Dose: 1 tab Cholecalciferol (Vitamin D Tab*) 1,000 units PO DAILY [facility] Last Admin: 11/01/18 09:23 Dose: 1,000 units Enoxaparin Sodium (Lovenox(*)) 40 mg SUBCUT Q24H [facility] Last Admin: 10/31/18 21:27 Dose: 40 mg Hydrochlorothiazide (Hydrodiuril Tab*) 25 mg PO DAILY [facility] Last Admin: 11/01/18 09:23 Dose: 25 mg Ceftriaxone Sodium 1 gm/ (Sodium Chloride) 50 mls @ 200 mls/hr IVPB Q24H [facility] Last Admin: 10/31/18 18:52 Dose: 200 mls/hr Magnesium Hydroxide (Milk Of Magnesia Liq*) 30 ml PO Q6H PRN PRN Reason: CONSTIPATION Last Admin: 11/01/18 09:34 Dose: 30 ml Pto: Butalbital/Aspirin/Caffeine [ Fiorinal 50-325-40 Mg-] 1 Cap 1 cap PO Q6H PRN PRN Reason: HEADACHE Ondansetron HCl (Zofran Tab*) 4 mg PO Q6H PRN PRN Reason: NAUSEA Last Admin: 11/01/18 06:26 Dose: 4 mg Ondansetron HCl (Zofran Inj*) 4 mg IV Q6H PRN PRN Reason: NAUSEA Last Admin: 11/01/18 09:29 Dose: 4 mg Pantoprazole Sodium (Protonix Tab*) 40 mg PO DAILY [facility] Last Admin: 11/01/18 09:23 Dose: 40 mg Polyethylene Glycol/Electrolytes (Miralax*) 17 gm PO 0800,2100 [facility] Potassium Chloride (Klor Con Er Tab*) 10 meq PO DAILY [facility] Last Admin: 11/01/18 09:23 Dose: 10 meq Prochlorperazine (Compazine Tab*) 10 mg PO TID [facility] Tramadol HCl (Ultram*) 50 mg PO Q6H PRN PRN Reason: PAIN Last Admin: 10/31/18 21:26 Dose: 50 mg Vital Signs - 8 hr 11/01/18 11/01/18 06:26 07:33 Temperature 98.2 F Pulse Rate 62 Respiratory 20 16 Rate Blood Pressure 145/50 (mmHg) O2 Sat by Pulse 93 Oximetry Oxygen Devices in Use Now: None Appearance: Alert, supine in bed. In good spirits. Looks comfortable at rest. Eyes: No Scleral Icterus Respiratory: Symmetrical Chest Expansion and Respiratory Effort, Clear to Auscultation, Clear to Percussion Cardiovascular: NL Sounds; No Murmurs; No JVD, RRR, No Edema, - Extremities: No Edema, No Clubbing, Cyanosis, - Skin: No Rash or Ulcers, No Nodules or Sclerosis, - Neurological: Alert and Oriented x 3, NL Sensation - UMANZOR well. Result Diagrams: 10/28/18 06:13 10/28/18 06:13 Microbiology and Other Data: Microbiology 10/30/18 13:00 Urine Urine Culture - Preliminary Escherichia Coli 10/27/18 22:11 Urine Urine Culture - Final No Growth (<1,000 CFU/mL) Diagnostic Imaging: MRI L-spine Acute L1 burst fracture EKG Data: Sinus at 70 beats per minute when compared to old EKG 08/23/2018 no significant change. Assess/Plan/Problems-Billing Assessment: Mrs Cantrell is an 88yo F with PMH of Hypertension, Dyslipidemia, Osteoporosis , Anxiety, Hysterectomy, Acustic Neuroma, Brain stem tumors; who presented to ED after sustaining a mechanical fall, found to have burst L1 fracture. Likely will need RALF. - Patient Problems (1) L1 vertebral fracture Current Visit: Yes Status: Acute Code(s): S32.019A - UNSP FRACTURE OF FIRST LUMBAR VERTEBRA, INIT FOR CLOS FX SNOMED Code(s): 576463678 Comment: - MRI shows mild decrease of L1 height, with acute burst fracture. - Neurosurgery recommended conservative approach with TLSO. - Activity advanced to as tolerated (with TLSO if not in bed). AP Lumbar X-ray standing with brace obtained. - continue PT/OT eval. Needs to test for stairs but family and this provider think would do best in RALF for rehab as she has not been able to apply TLSO on herself. Lives in split level with multiple stairs and son works during the day. (2) Leukocytosis Current Visit: Yes Status: Acute Priority: Medium Code(s): D72.829 - ELEVATED WHITE BLOOD CELL COUNT, UNSPECIFIED SNOMED Code(s): 539550506 Comment: - Present on admission, likely secondary to stress from fall, now resolved. - Repeat (10/30) UCx with 100K Ecoli, CFTX started 5PM 10/31/18. (3) HTN (hypertension) Current Visit: Yes Status: Acute Code(s): I10 - ESSENTIAL (PRIMARY) HYPERTENSION SNOMED Code(s): 81867752 Comment: - 150-170s - Continue Atenolol 100mg daily, HCTZ 25mg . - increase amlodipine form 5mg to 10mg daily (extra 5 mg 10/31) (4) Hypokalemia Current Visit: Yes Status: Acute Priority: Low Code(s): E87.6 - HYPOKALEMIA SNOMED Code(s): 96297971 Comment: - Resolved. (5) Hyperlipidemia Current Visit: Yes Status: Acute Code(s): E78.5 - HYPERLIPIDEMIA, UNSPECIFIED SNOMED Code(s): 69675754 Comment: - Continue atorvastatin 20mg Status and Disposition: medicine inpatient. Likely will need RALF.
[2018-11-01] MEDS: Prochlorperazine TAB* 10 MG PO SCH ×2 (12:56→20:24)
[2018-11-01] MEDS: Al Hydrox/Mg Hydrox/Simet LIQ* 30 ML UDC PO PRN ×2 (12:56→17:02)
[2018-11-01] MEDS: cefTRIAXone(*) 1 GM in NS 0.9% 50 ML* 50 ML IVPB SCH (16:19)
[2018-11-01] MEDS: Atorvastatin* 20 MG TAB PO SCH (16:43)
[2018-11-01] MEDS: traMADol TAB* 50 MG PO PRN (17:01)
[2018-11-01 18:50] LABS: Albumin 3.1 g/dL (3.2-5.2); Albumin/Globulin Ratio 1.4 (1-3); BUN/Creatinine Ratio 21.6 (8-20); Calcium 8.1 mg/dL (8.6-10.3); EGFR African American 137.7 (>60); EGFR Non-African American 113.8 (>60); Globulin 2.2 g/dL (2-4); Total Bilirubin 0.5 mg/dL (0.2-1.0); Total Protein 5.3 g/dL (6.4-8.9)
[2018-11-01 19:22] LABS: Potassium 2.6 mmol/L (3.5-5.0)
[2018-11-01 20:15] LABS: ABS Eosinophils 0.1 10^3/ul (0-0.6); ABS Lymphocytes 1.1 10^3/ul (1.0-4.8); ABS Monocytes 2.4 10^3/ul (0-0.8); ABS Neutrophils 8.6 10^3/ul (1.5-7.7); Eosinophil % 0.6 %; Hematocrit 36 % (35-47); Hemoglobin 13.3 g/dL (12.0-16.0); Lymphocyte % 9.1 %; Mean Corpuscular HGB Conc 37 g/dL (31-36); Mean Corpuscular Hemoglobin 31 pg (27-31); Mean Corpuscular Volume 85 fL (80-97); Mean Platelet Volume 8.3 fL (7.4-10.4); Platelet Count 211 10^3/uL (150-450); Red Blood Count 4.28 10^6 /uL (3.70-4.87); Red Cell Distribution Width 13 % (10-15); White Blood Count 12.2 10^3/uL (3.5-10.8)
[2018-11-01] MEDS ORDERED: NS 0.9% 1000 ML** 1,000 ML IV SCH (20:15)
[2018-11-01 20:26] LABS: Urine Appearance Cloudy; Urine Bacteria 1+ (Absent); Urine Bilirubin Negative (Negative); Urine Blood 1+ (Negative); Urine Color Yellow; Urine Glucose Negative (Negative); Urine Ketones Trace (Negative); Urine Nitrite Negative (Negative); Urine Protein Negative (Negative); Urine Red Blood Cell 1+(3-5/hpf) (Absent); Urine Specific Gravity 1.009 (1.010-1.030); Urine Urobilinogen Negative (Negative); Urine White Blood Cell 1+(6-10/hpf) (Absent)
[2018-11-01 20:30] LABS: BUN/Creatinine Ratio 23.1 (8-20); Calcium 8.5 mg/dL (8.6-10.3); EGFR African American 134.7 (>60); EGFR Non-African American 111.3 (>60)
[2018-11-01 20:31] LABS: Urine Potassium Concentration 24.4 mmol/L
[2018-11-01 20:35] LABS: Potassium 2.6 mmol/L (3.5-5.0)
[2018-11-01] MEDS ORDERED: Potassium Chlor TAB* 20 MEQ TAB.ER PO ONE (20:43)
[2018-11-01] MEDS ORDERED: Polyethylene Glycol 3350* 17 GM PACKET PO SCH ×2 (21:00)
[2018-11-01] MEDS: KCL 20 MEQ/100 ML IVPREMIX* 20 MEQ/100 ML BAG IV SCH ×2 (21:29→23:39)
[2018-11-01] MEDS: Enoxaparin(*) 40 MG/0.4 ML SYR SUBCUT SCH (21:37)
[2018-11-01 22:18] LABS: Phosphorus 1.5 mg/dL (2.5-5.0)
[2018-11-01] MEDS ORDERED: Potassium Phosphate IV* 15 MMOLE in NS 0.9% 250 ML* 250 ML IVPB ONE (23:00)
[2018-11-01 23:33] LABS: BUN/Creatinine Ratio 23.1 (8-20); Calcium 8.2 mg/dL (8.6-10.3); EGFR African American 134.7 (>60); EGFR Non-African American 111.3 (>60); Potassium 3.3 mmol/L (3.5-5.0)
[2018-11-02 02:04] LABS: Urine Appearance Cloudy; Urine Bacteria Absent (Absent); Urine Bilirubin Negative (Negative); Urine Blood 1+ (Negative); Urine Color Straw; Urine Glucose Negative (Negative); Urine Ketones Trace (Negative); Urine Nitrite Negative (Negative); Urine Protein Negative (Negative); Urine Red Blood Cell Trace(0-2/hpf) (Absent); Urine Specific Gravity 1.003 (1.010-1.030); Urine Urobilinogen Negative (Negative); Urine White Blood Cell Trace(0-5/hpf) (Absent)
[2018-11-02] MEDS: Acetaminophen TAB* 325 MG PO PRN ×2 (02:53→10:09)
[2018-11-02 04:06] LABS: BUN/Creatinine Ratio 19.6 (8-20); Calcium 8.5 mg/dL (8.6-10.3); EGFR African American 155.1 (>60); EGFR Non-African American 128.2 (>60); Potassium 4.2 mmol/L (3.5-5.0)
[2018-11-02] MEDS ORDERED: NS 0.45% 1000 ML BAG* 1,000 ML IV SCH (05:00)
[2018-11-02] MEDS: traMADol TAB* 50 MG PO PRN ×2 (05:51→18:22)
--- NOTE | 2018-11-02 07:55 | PN ---
Subjective Date of Service: 11/02/18 Interval History: Less nausea today. No BM since last evening. Pt states "I never eat in the hospital." Pain control OK. Family History: Unchanged from Admission - Non-Contributary at her age. Social History: Unchanged from Admission - Quit Smoking 53 years ago. Son lives at her home. Past Medical History: Unchanged from Admission Objective Active Medications: Acetaminophen (Tylenol Tab*) 650 mg PO Q4H PRN PRN Reason: FEVER/PAIN Last Admin: 11/02/18 02:53 Dose: 650 mg Al Hydrox/Mg Hydrox/Simethicone (Maalox Plus*) 30 ml PO Q4H PRN PRN Reason: DYSPEPSIA Last Admin: 11/01/18 17:02 Dose: 30 ml Amlodipine Besylate (Norvasc Tab*) 10 mg PO DAILY [facility] Last Admin: 11/01/18 09:23 Dose: 10 mg Atenolol (Tenormin Tab*) 100 mg PO DAILY [facility] Last Admin: 11/01/18 09:23 Dose: 100 mg Atorvastatin Calcium (Lipitor*) 20 mg PO 1700 [facility] Last Admin: 11/01/18 16:43 Dose: 20 mg Calcium/Vitamin D (Oscal D Tab 250/125*) 1 tab PO DAILY [facility] Last Admin: 11/01/18 09:24 Dose: 1 tab Cholecalciferol (Vitamin D Tab*) 1,000 units PO DAILY [facility] Last Admin: 11/01/18 09:23 Dose: 1,000 units Enoxaparin Sodium (Lovenox(*)) 40 mg SUBCUT Q24H [facility] Last Admin: 11/01/18 21:37 Dose: 40 mg Ceftriaxone Sodium 1 gm/ (Sodium Chloride) 50 mls @ 200 mls/hr IVPB Q24H [facility] Last Admin: 11/01/18 16:19 Dose: 200 mls/hr Magnesium Hydroxide (Milk Of Magnesia Liq*) 30 ml PO Q6H PRN PRN Reason: CONSTIPATION Last Admin: 11/01/18 09:34 Dose: 30 ml Pto: Butalbital/Aspirin/Caffeine [ Fiorinal 50-325-40 Mg-] 1 Cap 1 cap PO Q6H PRN PRN Reason: HEADACHE Ondansetron HCl (Zofran Tab*) 4 mg PO Q6H PRN PRN Reason: NAUSEA Last Admin: 11/01/18 12:56 Dose: 4 mg Pantoprazole Sodium (Protonix Tab*) 40 mg PO DAILY [facility] Last Admin: 11/01/18 09:23 Dose: 40 mg Potassium Chloride (Klor Con Er Tab*) 10 meq PO DAILY [facility] Last Admin: 11/01/18 09:23 Dose: 10 meq Prochlorperazine (Compazine Tab*) 10 mg PO TID [facility] Last Admin: 11/01/18 20:24 Dose: 10 mg Tramadol HCl (Ultram*) 50 mg PO Q6H PRN PRN Reason: PAIN Last Admin: 11/02/18 05:51 Dose: 50 mg Vital Signs - 8 hr 11/02/18 11/02/18 11/02/18 00:00 01:00 01:02 Temperature Pulse Rate 69 75 73 Respiratory 16 17 17 Rate Blood Pressure 147/60 170/68 (mmHg) O2 Sat by Pulse 95 95 95 Oximetry 11/02/18 11/02/18 11/02/18 02:00 02:02 02:09 Temperature 97.9 F 97.9 F 97.9 F Pulse Rate 78 79 73 Respiratory 17 17 19 Rate Blood Pressure 159/64 (mmHg) O2 Sat by Pulse 93 94 94 Oximetry 11/02/18 11/02/18 11/02/18 02:57 03:00 03:36 Temperature 97.9 F 98.2 F Pulse Rate 75 77 Respiratory 20 15 21 Rate Blood Pressure 157/75 157/75 (mmHg) O2 Sat by Pulse 95 95 Oximetry 11/02/18 11/02/18 11/02/18 03:57 04:00 04:01 Temperature 98.2 F 98.2 F Pulse Rate 81 75 Respiratory 15 16 15 Rate Blood Pressure 164/67 (mmHg) O2 Sat by Pulse 95 95 Oximetry 11/02/18 11/02/18 11/02/18 05:00 05:58 06:00 Temperature 98.2 F 97.9 F Pulse Rate 83 75 Respiratory 15 19 17 Rate Blood Pressure 128/106 148/59 (mmHg) O2 Sat by Pulse 92 96 Oximetry 11/02/18 07:19 Temperature 97.1 F Pulse Rate Respiratory Rate Blood Pressure (mmHg) O2 Sat by Pulse Oximetry Oxygen Devices in Use Now: None Appearance: Alert, supine in ICU bed. In good spirits, looks comfortable. Eyes: No Scleral Icterus Extremities: No Edema, No Clubbing, Cyanosis, - Skin: No Rash or Ulcers, No Nodules or Sclerosis, - Neurological: Alert and Oriented x 3, NL Sensation Result Diagrams: 11/01/18 20:04 11/02/18 03:40 Microbiology and Other Data: Microbiology 10/30/18 13:00 Urine Urine Culture - Preliminary Escherichia Coli 10/27/18 22:11 Urine Urine Culture - Final No Growth (<1,000 CFU/mL) Diagnostic Imaging: MRI L-spine Acute L1 burst fracture EKG Data: Sinus at 70 beats per minute when compared to old EKG 08/23/2018 no significant change. Assess/Plan/Problems-Billing Assessment: Mrs Cantrell is an 88yo F with PMH of Hypertension, Dyslipidemia, Osteoporosis , Anxiety, Hysterectomy, Acustic Neuroma, Brain stem tumors; who presented to ED after sustaining a mechanical fall, found to have burst L1 fracture. Likely will need RALF. - Patient Problems (1) L1 vertebral fracture Current Visit: Yes Status: Acute Code(s): S32.019A - UNSP FRACTURE OF FIRST LUMBAR VERTEBRA, INIT FOR CLOS FX SNOMED Code(s): 216696799 Comment: - MRI shows mild decrease of L1 height, with acute burst fracture. - Neurosurgery recommended conservative approach with TLSO. - Activity advanced to as tolerated (with TLSO if not in bed). AP Lumbar X-ray standing with brace obtained. - continue PT/OT. Needs to test for stairs but family and this provider think would do best in RALF for rehab as she has not been able to apply TLSO on herself. Lives in split level with multiple stairs and son works during the day. (2) Leukocytosis Current Visit: Yes Status: Acute Priority: Medium Code(s): D72.829 - ELEVATED WHITE BLOOD CELL COUNT, UNSPECIFIED SNOMED Code(s): 655943006 Comment: - Present on admission, likely secondary to stress from fall, now resolved. - Repeat (10/30) UCx with 100K Ecoli, CFTX started 5PM 10/31/18. (3) HTN (hypertension) Current Visit: Yes Status: Acute Code(s): I10 - ESSENTIAL (PRIMARY) HYPERTENSION SNOMED Code(s): 48028084 Comment: - 150-170s - Continue Atenolol 100mg daily. Continue amlodipine 10mg daily. (4) Hypokalemia Current Visit: Yes Status: Acute Priority: Low Code(s): E87.6 - HYPOKALEMIA SNOMED Code(s): 84522012 Comment: - Resolved. (5) Hyperlipidemia Current Visit: Yes Status: Acute Code(s): E78.5 - HYPERLIPIDEMIA, UNSPECIFIED SNOMED Code(s): 61532577 Comment: - Continue atorvastatin 20mg (6) Hyponatremia Current Visit: Yes Status: Acute Code(s): E87.1 - HYPO-OSMOLALITY AND HYPONATREMIA SNOMED Code(s): 23319156 Comment: Severe (110), likely due to thiazide, last dose 11/01. Repeat BM 11/02 1 PM, if OK transfer to floor. Oral intake recorded is low, will not order fluid restriction. Patient advised to not drink a lot of liquids, only a normal amount. BMP 11/03 also. Status and Disposition: medicine inpatient. Likely will need RALF.
[2018-11-02] MEDS: Prochlorperazine TAB* 10 MG PO SCH ×3 (09:08→20:34)
[2018-11-02] MEDS: Cholecalciferol TAB* 1000 UNITS PO SCH (09:08)
[2018-11-02] MEDS: Pantoprazole TAB * 40 MG TAB PO SCH (09:08)
[2018-11-02] MEDS: Potassium Chlor TAB* 10 MEQ TAB.ER PO SCH (09:08)
[2018-11-02] MEDS: Atenolol TAB* 50 MG PO SCH (09:08)
[2018-11-02] MEDS: Calcium/Vitamin D TAB 250/125* TAB PO SCH (09:08)
[2018-11-02] MEDS: amLODIPine TAB* 5 MG PO SCH (09:09)
[2018-11-02 13:54] LABS: BUN/Creatinine Ratio 21.1 (8-20); Calcium 8.4 mg/dL (8.6-10.3); EGFR African American 193.4 (>60); EGFR Non-African American 159.8 (>60); Potassium 3.8 mmol/L (3.5-5.0)
[2018-11-02] MEDS ORDERED: Butalb/Acetamin/Caff TAB* 1 TAB PO PRN (15:26)
[2018-11-02] MEDS: cefTRIAXone(*) 1 GM in NS 0.9% 50 ML* 50 ML IVPB SCH (17:00)
[2018-11-02] MEDS: Atorvastatin* 20 MG TAB PO SCH (17:34)
[2018-11-02 19:05] LABS: Calcium 8.1 mg/dL (8.6-10.3); Potassium 3.8 mmol/L (3.5-5.0)
[2018-11-02 19:10] LABS: BUN/Creatinine Ratio 19.5 (8-20); EGFR African American 177.2 (>60); EGFR Non-African American 146.4 (>60)
[2018-11-02] MEDS: NS 0.9% 1000 ML** 1,000 ML IV SCH (20:35)
[2018-11-02] MEDS: Enoxaparin(*) 40 MG/0.4 ML SYR SUBCUT SCH (21:29)
[2018-11-02] MEDS: Ondansetron TAB* 4 MG PO PRN (22:41)
[2018-11-03] MEDS: traMADol TAB* 50 MG PO PRN ×3 (02:51→20:46)
[2018-11-03] MEDS: Acetaminophen TAB* 325 MG PO PRN (05:37)
[2018-11-03] MEDS: NS 0.9% 1000 ML** 1,000 ML IV SCH (06:23)
--- NOTE | 2018-11-03 08:24 | PN ---
Subjective Date of Service: 11/03/18 Interval History: Hyponatremia not improving as expected off thiazide diuretic. Started on IVF yesterday evening? And ordered for Fioricet? Will check urine studies, TSH, and morning cortisol. Initiate on salt tabs as pt reports low solute/food intake during hospitalization. On interview this AM, pt had just received tramadol and was very sleepy. Denies complaints when asked. Objective Active Medications: Acetaminophen (Tylenol Tab*) 650 mg PO Q4H PRN PRN Reason: FEVER/PAIN Last Admin: 11/03/18 05:37 Dose: 650 mg Acetaminophen/Butalbital/Caffeine (Fioricet Tab*) 1 tab PO Q4H PRN PRN Reason: HEADACHE/PAIN Al Hydrox/Mg Hydrox/Simethicone (Maalox Plus*) 30 ml PO Q4H PRN PRN Reason: DYSPEPSIA Last Admin: 11/01/18 17:02 Dose: 30 ml Amlodipine Besylate (Norvasc Tab*) 10 mg PO DAILY [facility] Last Admin: 11/02/18 09:09 Dose: 10 mg Atenolol (Tenormin Tab*) 100 mg PO DAILY [facility] Last Admin: 11/02/18 09:08 Dose: 100 mg Atorvastatin Calcium (Lipitor*) 20 mg PO 1700 [facility] Last Admin: 11/02/18 17:34 Dose: 20 mg Calcium/Vitamin D (Oscal D Tab 250/125*) 1 tab PO DAILY [facility] Last Admin: 11/02/18 09:08 Dose: 1 tab Cholecalciferol (Vitamin D Tab*) 1,000 units PO DAILY [facility] Last Admin: 11/02/18 09:08 Dose: 1,000 units Enoxaparin Sodium (Lovenox(*)) 40 mg SUBCUT Q24H [facility] Last Admin: 11/02/18 21:29 Dose: 40 mg Ceftriaxone Sodium 1 gm/ (Sodium Chloride) 50 mls @ 200 mls/hr IVPB Q24H [facility] Last Admin: 11/02/18 17:00 Dose: 200 mls/hr Sodium Chloride (Ns 0.9% 1000 Ml) 1,000 mls @ 100 mls/hr IV PER RATE [facility] Last Admin: 11/03/18 06:23 Dose: 100 mls/hr Magnesium Hydroxide (Milk Of Magnesia Liq*) 30 ml PO Q6H PRN PRN Reason: CONSTIPATION Last Admin: 11/01/18 09:34 Dose: 30 ml Ondansetron HCl (Zofran Tab*) 4 mg PO Q6H PRN PRN Reason: NAUSEA Last Admin: 11/02/18 22:41 Dose: 4 mg Pantoprazole Sodium (Protonix Tab*) 40 mg PO DAILY [facility] Last Admin: 11/02/18 09:08 Dose: 40 mg Potassium Chloride (Klor Con Er Tab*) 10 meq PO DAILY [facility] Last Admin: 11/02/18 09:08 Dose: 10 meq Sodium Chloride (Sodium Chloride Tab*) 1 gm PO TID [facility] Tramadol HCl (Ultram*) 50 mg PO Q6H PRN PRN Reason: PAIN Last Admin: 11/03/18 02:51 Dose: 50 mg Vital Signs - 8 hr 11/03/18 11/03/18 11/03/18 02:51 03:00 04:21 Temperature 97.6 F Pulse Rate 84 Respiratory 18 20 18 Rate Blood Pressure 151/57 (mmHg) O2 Sat by Pulse 94 Oximetry Oxygen Devices in Use Now: None Result Diagrams: 11/01/18 20:04 11/03/18 08:51 Microbiology and Other Data: Microbiology 10/30/18 13:00 Urine Urine Culture - Preliminary Escherichia Coli 10/27/18 22:11 Urine Urine Culture - Final No Growth (<1,000 CFU/mL) Diagnostic Imaging: MRI L-spine Acute L1 burst fracture EKG Data: Sinus at 70 beats per minute when compared to old EKG 08/23/2018 no significant change. Assess/Plan/Problems-Billing Assessment: 88W with hypertension, osteoporosis, anxiety, acoustic neuroma, and brain stem tumors who presented after sustaining a mechanical fall, found to have burst L1 fracture. Course complicated by severe hyponatremia of unclear etiology. - Patient Problems (1) Hyponatremia Comment: Severe (110). No headache, nausea, or vomiting. Not improved after discontinuation of thiazide diuretic. Euvolemic on exam. - improvement 113 -> 119 after IVF overnight - if symptoms - will need hypertonic saline bolus (unclear why ordered for Fiorcet yesterday - will DC today and monitor neuro exam closely) - will order work up: TSH, cortisol, and urine osm/Na - neuro checks - stop PPI given associated with SIADH (2) L1 vertebral fracture Comment: MRI shows mild decrease of L1 height, with acute burst fracture.. Neurosurgery recommended conservative approach with TLSO. - activity advanced to as tolerated (with TLSO if not in bed) - continue PT/OT; pending RALF placement (3) HTN (hypertension) Current Visit: Yes Status: Acute Code(s): I10 - ESSENTIAL (PRIMARY) HYPERTENSION SNOMED Code(s): 27743945 Comment: - 150-170s - Continue Atenolol 100mg daily. Continue amlodipine 10mg daily. (4) Hyperlipidemia Current Visit: Yes Status: Acute Code(s): E78.5 - HYPERLIPIDEMIA, UNSPECIFIED SNOMED Code(s): 05042072 Comment: - Continue atorvastatin 20mg (5) DVT prophylaxis Current Visit: Yes Status: Acute Code(s): Z29.9 - ENCOUNTER FOR PROPHYLACTIC MEASURES, UNSPECIFIED SNOMED Code(s): 526940242 Comment: - Lovenox. (6) Full code status Current Visit: Yes Status: Acute Code(s): Z78.9 - OTHER SPECIFIED HEALTH STATUS SNOMED Code(s): 108483237 Status and Disposition: medicine inpatient. Likely will need RALF.
[2018-11-03] MEDS: Atenolol TAB* 50 MG PO SCH (08:39)
[2018-11-03] MEDS: amLODIPine TAB* 5 MG PO SCH (08:39)
[2018-11-03] MEDS: Calcium/Vitamin D TAB 250/125* TAB PO SCH (08:39)
[2018-11-03] MEDS: Sodium Chloride TAB* 1 GM PO SCH ×3 (08:40→20:46)
[2018-11-03] MEDS: Pantoprazole TAB * 40 MG TAB PO SCH (08:40)
[2018-11-03] MEDS: Potassium Chlor TAB* 10 MEQ TAB.ER PO SCH (08:40)
[2018-11-03] MEDS: Cholecalciferol TAB* 1000 UNITS PO SCH (08:40)
[2018-11-03 09:35] LABS: BUN/Creatinine Ratio 20.6 (8-20); Calcium 8.6 mg/dL (8.6-10.3); EGFR African American 219.9 (>60); EGFR Non-African American 181.7 (>60)
[2018-11-03 09:55] LABS: TSH (Thyroid Stimulating Horm) 0.42 mcIU/mL (0.34-5.60)
[2018-11-03] MEDS: cefTRIAXone(*) 1 GM in NS 0.9% 50 ML* 50 ML IVPB SCH (16:48)
[2018-11-03] MEDS: Atorvastatin* 20 MG TAB PO SCH (16:48)
[2018-11-03] MEDS: KCL 20 MEQ/100 ML IVPREMIX* 20 MEQ/100 ML BAG IV SCH ×2 (17:32→20:46)
[2018-11-03] MEDS: Enoxaparin(*) 40 MG/0.4 ML SYR SUBCUT SCH (21:05)
[2018-11-04 00:17] LABS: CO2 Carbon Dioxide 20 mmol/L (22-32); Calcium 8.3 mg/dL (8.6-10.3); Chloride 94 mmol/L (101-111); Sodium 121 mmol/L (135-145)
[2018-11-04 00:22] LABS: BUN/Creatinine Ratio 29.4 (8-20); Blood Urea Nitrogen 10 mg/dL (6-24); EGFR African American 219.9 (>60); EGFR Non-African American 181.7 (>60); Glucose 103 mg/dL (70-100)
[2018-11-04 00:26] LABS: Anion Gap 7 mmol/L (2-11)
[2018-11-04] MEDS: Acetaminophen TAB* 325 MG PO PRN ×2 (02:24→20:02)
[2018-11-04] MEDS: ALPRAZolam TAB* 0.25 MG PO PRN ×2 (03:27→21:32)
[2018-11-04 06:27] LABS: Hematocrit 34 % (35-47); Mean Corpuscular HGB Conc 36 g/dL (31-36); Mean Corpuscular Hemoglobin 31 pg (27-31); Mean Corpuscular Volume 87 fL (80-97); Mean Platelet Volume 8.4 fL (7.4-10.4); Platelet Count 209 10^3/uL (150-450); Red Blood Count 3.85 10^6 /uL (3.70-4.87); Red Cell Distribution Width 14 % (10-15); White Blood Count 12.5 10^3/uL (3.5-10.8)
--- NOTE | 2018-11-04 06:29 | PN ---
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
[2018-11-04 06:47] LABS: Calcium 8.3 mg/dL (8.6-10.3); EGFR African American 199.4 (>60); EGFR Non-African American 164.8 (>60); Magnesium 1.9 mg/dL (1.9-2.7); Potassium 3.9 mmol/L (3.5-5.0)
[2018-11-04] MEDS ORDERED: Polyethylene Glycol 3350* 17 GM PACKET PO PRN (07:38)
--- NOTE | 2018-11-04 07:39 | PN ---
Subjective Date of Service: 11/04/18 Interval History: Patient reports feeling better, however states that the body is uncomfortable because of being in bed, does not like the brace. Reports no BM X 3 days. Family History: Unchanged from Admission - Non-Contributary at her age. Social History: Unchanged from Admission - Quit Smoking 53 years ago. Son lives at her home. Past Medical History: Unchanged from Admission Objective Active Medications: Acetaminophen (Tylenol Tab*) 650 mg PO Q4H PRN PRN Reason: FEVER/PAIN Last Admin: 11/04/18 02:24 Dose: 650 mg Al Hydrox/Mg Hydrox/Simethicone (Maalox Plus*) 30 ml PO Q4H PRN PRN Reason: DYSPEPSIA Last Admin: 11/01/18 17:02 Dose: 30 ml Alprazolam (Xanax Tab*) 0.25 mg PO BID PRN PRN Reason: ANXIETY Last Admin: 11/04/18 03:27 Dose: 0.25 mg Amlodipine Besylate (Norvasc Tab*) 10 mg PO DAILY [facility] Last Admin: 11/03/18 08:39 Dose: 10 mg Atenolol (Tenormin Tab*) 100 mg PO DAILY [facility] Last Admin: 11/03/18 08:39 Dose: 100 mg Atorvastatin Calcium (Lipitor*) 20 mg PO 1700 [facility] Last Admin: 11/03/18 16:48 Dose: 20 mg Calcium/Vitamin D (Oscal D Tab 250/125*) 1 tab PO DAILY [facility] Last Admin: 11/03/18 08:39 Dose: 1 tab Cholecalciferol (Vitamin D Tab*) 1,000 units PO DAILY [facility] Last Admin: 11/03/18 08:40 Dose: 1,000 units Enoxaparin Sodium (Lovenox(*)) 40 mg SUBCUT Q24H [facility] Last Admin: 11/03/18 21:05 Dose: 40 mg Magnesium Hydroxide (Milk Of Magnesia Liq*) 30 ml PO Q6H PRN PRN Reason: CONSTIPATION Last Admin: 11/01/18 09:34 Dose: 30 ml Ondansetron HCl (Zofran Tab*) 4 mg PO Q6H PRN PRN Reason: NAUSEA Last Admin: 11/02/18 22:41 Dose: 4 mg Potassium Chloride (Klor Con Er Tab*) 10 meq PO DAILY [facility] Last Admin: 11/03/18 08:40 Dose: 10 meq Sodium Chloride (Sodium Chloride Tab*) 1 gm PO TID [facility] Last Admin: 11/03/18 20:46 Dose: 1 gm Tramadol HCl (Ultram*) 50 mg PO Q6H PRN PRN Reason: PAIN Last Admin: 11/03/18 20:46 Dose: 50 mg Vital Signs - 8 hr 11/04/18 11/04/18 11/04/18 01:21 02:00 02:44 Temperature 98.0 F Pulse Rate 78 Respiratory 16 18 18 Rate Blood Pressure 154/52 (mmHg) O2 Sat by Pulse 97 Oximetry 11/04/18 11/04/18 03:27 05:54 Temperature Pulse Rate Respiratory 18 16 Rate Blood Pressure (mmHg) O2 Sat by Pulse Oximetry Oxygen Devices in Use Now: None Appearance: Lying in bed, not in distress Eyes: PERRLA Respiratory: Clear to Auscultation Cardiovascular: NL Sounds; No Murmurs; No JVD, RRR, No Edema Abdominal: NL Sounds; No Tenderness; No Distention, No Hepatosplenomegaly Extremities: No Edema Neurological: Alert and Oriented x 3 Result Diagrams: 11/04/18 05:35 11/04/18 05:35 Microbiology and Other Data: Microbiology 10/30/18 13:00 Urine Urine Culture - Preliminary Escherichia Coli 10/27/18 22:11 Urine Urine Culture - Final No Growth (<1,000 CFU/mL) Diagnostic Imaging: MRI L-spine Acute L1 burst fracture EKG Data: Sinus at 70 beats per minute when compared to old EKG 08/23/2018 no significant change. Assess/Plan/Problems-Billing Assessment: 88W with hypertension, osteoporosis, anxiety, acoustic neuroma, and brain stem tumors who presented after sustaining a mechanical fall, found to have burst L1 fracture. Course complicated by severe hyponatremia of unclear etiology. - Patient Problems (1) Hypokalemia Current Visit: Yes Status: Acute Priority: Low Code(s): E87.6 - HYPOKALEMIA SNOMED Code(s): 57609894 Comment: - Resolved. (2) Hyponatremia Current Visit: Yes Status: Acute Code(s): E87.1 - HYPO-OSMOLALITY AND HYPONATREMIA SNOMED Code(s): 32837832 Comment: has improved from 110--> 124. urine studies suggest SIADH, continue fluid restriciton, continue to monitor. No headaches, no n/v. Hold thiazide. (3) L1 vertebral fracture Current Visit: Yes Status: Acute Code(s): S32.019A - UNSP FRACTURE OF FIRST LUMBAR VERTEBRA, INIT FOR CLOS FX SNOMED Code(s): 390689119 Comment: MRI shows mild decrease of L1 height, with acute burst fracture.. Neurosurgery recommended conservative approach with TLSO. - activity advanced to as tolerated (with TLSO if not in bed) - continue PT/OT; pending RALF placement (4) Leukocytosis Current Visit: Yes Status: Acute Priority: Medium Code(s): D72.829 - ELEVATED WHITE BLOOD CELL COUNT, UNSPECIFIED SNOMED Code(s): 587347240 Comment: - Present on admission, likely secondary to stress from fall, now resolved. - UTI diagnosed. (5) DVT prophylaxis Current Visit: Yes Status: Acute Code(s): Z29.9 - ENCOUNTER FOR PROPHYLACTIC MEASURES, UNSPECIFIED SNOMED Code(s): 490037035 Comment: - Lovenox. (6) UTI (urinary tract infection) Current Visit: Yes Status: Acute Comment: E. Coli, On rocephin (7) Constipated Current Visit: Yes Status: Acute Code(s): K59.00 - CONSTIPATION, UNSPECIFIED SNOMED Code(s): 28671131 Comment: Likely due to pain medication and inactivity. Bowel regimen ordered Status and Disposition: Likely will need RALF.
[2018-11-04] MEDS: Potassium Chlor TAB* 10 MEQ TAB.ER PO SCH (08:04)
[2018-11-04] MEDS: amLODIPine TAB* 5 MG PO SCH (08:04)
[2018-11-04] MEDS: Atenolol TAB* 50 MG PO SCH (08:04)
[2018-11-04] MEDS: Calcium/Vitamin D TAB 250/125* TAB PO SCH (08:05)
[2018-11-04] MEDS: Sodium Chloride TAB* 1 GM PO SCH ×3 (08:05→20:02)
[2018-11-04] MEDS: Docusate CAP* 100 MG PO SCH ×2 (08:05→20:02)
[2018-11-04] MEDS: Cholecalciferol TAB* 1000 UNITS PO SCH (08:05)
[2018-11-04] MEDS: Atorvastatin* 20 MG TAB PO SCH (17:32)
[2018-11-04] MEDS: cefTRIAXone(*) 1 GM in NS 0.9% 50 ML* 50 ML IVPB SCH (17:32)
[2018-11-04] MEDS: traMADol TAB* 50 MG PO PRN (17:35)
[2018-11-04] MEDS: Analgesic BALM* 114 GM TOPICAL PRN (20:03)
[2018-11-04] MEDS: Enoxaparin(*) 40 MG/0.4 ML SYR SUBCUT SCH (21:32)
[2018-11-05] MEDS: traMADol TAB* 50 MG PO PRN ×3 (00:17→15:19)
[2018-11-05] MEDS: Ondansetron TAB* 4 MG PO PRN ×2 (00:17→11:51)
[2018-11-05 07:10] LABS: BUN/Creatinine Ratio 29.5 (8-20); Calcium 8.4 mg/dL (8.6-10.3); EGFR African American 163.3 (>60); EGFR Non-African American 134.9 (>60); Potassium 3.9 mmol/L (3.5-5.0)
--- NOTE | 2018-11-05 08:35 | PN ---
Subjective Date of Service: 11/05/18 Interval History: Yesterday discussed with daughter, patient wanted to become DNR, MOLST form signed. This morning patient has complaints, feels her mouth is dry. No chest pain, no shortness of breath, no palpitations. No urinary issues. Family History: Unchanged from Admission - Non-Contributary at her age. Social History: Unchanged from Admission - Quit Smoking 53 years ago. Son lives at her home. Past Medical History: Unchanged from Admission Objective Active Medications: Acetaminophen (Tylenol Tab*) 650 mg PO Q4H PRN PRN Reason: PAIN SCALE 1-5 Last Admin: 11/04/18 20:02 Dose: 650 mg Al Hydrox/Mg Hydrox/Simethicone (Maalox Plus*) 30 ml PO Q4H PRN PRN Reason: DYSPEPSIA Last Admin: 11/01/18 17:02 Dose: 30 ml Alprazolam (Xanax Tab*) 0.25 mg PO BID PRN PRN Reason: ANXIETY Last Admin: 11/04/18 21:32 Dose: 0.25 mg Amlodipine Besylate (Norvasc Tab*) 10 mg PO DAILY [facility] Last Admin: 11/04/18 08:04 Dose: 10 mg Atenolol (Tenormin Tab*) 100 mg PO DAILY [facility] Last Admin: 11/04/18 08:04 Dose: 100 mg Atorvastatin Calcium (Lipitor*) 20 mg PO 1700 [facility] Last Admin: 11/04/18 17:32 Dose: 20 mg Calcium/Vitamin D (Oscal D Tab 250/125*) 1 tab PO DAILY [facility] Last Admin: 11/04/18 08:05 Dose: 1 tab Cholecalciferol (Vitamin D Tab*) 1,000 units PO DAILY [facility] Last Admin: 11/04/18 08:05 Dose: 1,000 units Docusate Sodium (Colace Cap*) 100 mg PO BID [facility] Last Admin: 11/04/18 20:02 Dose: 100 mg Enoxaparin Sodium (Lovenox(*)) 40 mg SUBCUT Q24H [facility] Last Admin: 11/04/18 21:32 Dose: 40 mg Ceftriaxone Sodium 1 gm/ (Sodium Chloride) 50 mls @ 200 mls/hr IVPB Q24H [facility] Last Admin: 11/04/18 17:32 Dose: 200 mls/hr Magnesium Hydroxide (Milk Of Magnesia Liq*) 30 ml PO Q6H PRN PRN Reason: CONSTIPATION Last Admin: 11/01/18 09:34 Dose: 30 ml Multi-Ingredient Liniment/Rub (Rikki Hagan*) 1 applic TOPICAL BID PRN PRN Reason: PAIN SCALE 1-5 Last Admin: 11/04/18 20:03 Dose: 1 applic Ondansetron HCl (Zofran Tab*) 4 mg PO Q6H PRN PRN Reason: NAUSEA Last Admin: 11/05/18 00:17 Dose: 4 mg Polyethylene Glycol/Electrolytes (Miralax*) 17 gm PO DAILY PRN PRN Reason: CONSTIPATION Last Admin: 11/04/18 08:04 Dose: 17 gm Potassium Chloride (Klor Con Er Tab*) 10 meq PO DAILY [facility] Last Admin: 11/04/18 08:04 Dose: 10 meq Senna (Senokot Tab*) 1 tab PO BEDTIME PRN PRN Reason: CONSTIPATION Sodium Chloride (Sodium Chloride Tab*) 1 gm PO TID [facility] Last Admin: 11/04/18 20:02 Dose: 1 gm Tramadol HCl (Ultram*) 50 mg PO Q6H PRN PRN Reason: PAIN SCALE 6-10 Last Admin: 11/05/18 00:17 Dose: 50 mg Vital Signs - 8 hr 11/05/18 02:34 Temperature 97.7 F Pulse Rate 78 Respiratory 16 Rate Blood Pressure 122/65 (mmHg) O2 Sat by Pulse 97 Oximetry Oxygen Devices in Use Now: None Appearance: Elderly female lying in bed, Not in distress Ears/Nose/Mouth/Throat: - - oral mucosa is dry. Respiratory: Symmetrical Chest Expansion and Respiratory Effort, Clear to Auscultation Cardiovascular: RRR, No Edema Abdominal: NL Sounds; No Tenderness; No Distention, No Hepatosplenomegaly Skin: No Rash or Ulcers Neurological: Alert and Oriented x 3 Result Diagrams: 11/04/18 05:35 11/05/18 06:36 Microbiology and Other Data: Microbiology 11/01/18 20:15 Urine Culture - Final Urine No Growth (<1,000 CFU/mL) 11/01/18 22:45 Nasal Screen MRSA (PCR) - Final Nasal Mrsa Not Detected 11/01/18 13:28 Stool Gross Appearance - Final Stool C. difficile DNA Amplification - Final 027 Presumptive NEGATIVE Toxigenic C.diff NEGATIVE 10/30/18 13:00 Urine Culture - Final Urine Escherichia Coli 10/27/18 22:11 Urine Culture - Final Urine No Growth (<1,000 CFU/mL) Diagnostic Imaging: MRI L-spine Acute L1 burst fracture EKG Data: Sinus at 70 beats per minute when compared to old EKG 08/23/2018 no significant change. Assess/Plan/Problems-Billing Assessment: 88W with hypertension, osteoporosis, anxiety, acoustic neuroma, and brain stem tumors who presented after sustaining a mechanical fall, found to have burst L1 fracture. Course complicated by severe hyponatremia of unclear etiology. - Patient Problems (1) Hypokalemia Current Visit: Yes Status: Acute Priority: Low Code(s): E87.6 - HYPOKALEMIA SNOMED Code(s): 93080315 Comment: - Resolved. (2) Hyponatremia Current Visit: Yes Status: Acute Code(s): E87.1 - HYPO-OSMOLALITY AND HYPONATREMIA SNOMED Code(s): 40323973 Comment: has improved from 110--> 126. urine studies suggest SIADH, continue fluid restriciton, continue to monitor. No headaches, no n/v. Hold thiazide. Continue salt tablets. (3) L1 vertebral fracture Current Visit: Yes Status: Acute Code(s): S32.019A - UNSP FRACTURE OF FIRST LUMBAR VERTEBRA, INIT FOR CLOS FX SNOMED Code(s): 225800359 Comment: MRI shows mild decrease of L1 height, with acute burst fracture.. Neurosurgery recommended conservative approach with TLSO. - activity advanced to as tolerated (with TLSO if not in bed) - continue PT/OT; pending RALF placement (4) Leukocytosis Current Visit: Yes Status: Acute Priority: Medium Code(s): D72.829 - ELEVATED WHITE BLOOD CELL COUNT, UNSPECIFIED SNOMED Code(s): 041675106 Comment: - Present on admission, likely secondary to stress from fall, now resolved. - UTI diagnosed. (5) DVT prophylaxis Current Visit: Yes Status: Acute Code(s): Z29.9 - ENCOUNTER FOR PROPHYLACTIC MEASURES, UNSPECIFIED SNOMED Code(s): 129842967 Comment: - Lovenox. (6) UTI (urinary tract infection) Current Visit: Yes Status: Acute Comment: E. Coli, On rocephin Day 2. (7) Constipated Current Visit: Yes Status: Acute Code(s): K59.00 - CONSTIPATION, UNSPECIFIED SNOMED Code(s): 93769270 Comment: Likely due to pain medication and inactivity. Bowel regimen ordered Status and Disposition: Likely will need RALF. PT evaluated.
[2018-11-05] MEDS: Atenolol TAB* 50 MG PO SCH (09:00)
[2018-11-05] MEDS: Senna TAB PO PRN ×2 (09:00→20:48)
[2018-11-05] MEDS: Docusate CAP* 100 MG PO SCH ×2 (09:00→20:49)
[2018-11-05] MEDS: Potassium Chlor TAB* 10 MEQ TAB.ER PO SCH (09:00)
[2018-11-05] MEDS: amLODIPine TAB* 5 MG PO SCH (09:00)
[2018-11-05] MEDS: Calcium/Vitamin D TAB 250/125* TAB PO SCH (09:00)
[2018-11-05] MEDS: Cholecalciferol TAB* 1000 UNITS PO SCH (09:00)
[2018-11-05] MEDS: Analgesic BALM* 114 GM TOPICAL PRN (09:06)
[2018-11-05] MEDS: Sodium Chloride TAB* 1 GM PO SCH ×3 (09:08→20:48)
[2018-11-05] MEDS: Atorvastatin* 20 MG TAB PO SCH (16:59)
[2018-11-05] MEDS: cefTRIAXone(*) 1 GM in NS 0.9% 50 ML* 50 ML IVPB SCH (16:59)
[2018-11-05] MEDS: Acetaminophen TAB* 325 MG PO PRN (20:48)
[2018-11-05] MEDS: Enoxaparin(*) 40 MG/0.4 ML SYR SUBCUT SCH (21:24)
[2018-11-05] MEDS: ALPRAZolam TAB* 0.25 MG PO PRN (21:24)
[2018-11-06] MEDS: Acetaminophen TAB* 325 MG PO PRN ×2 (03:28→16:38)
[2018-11-06] MEDS: traMADol TAB* 50 MG PO PRN ×2 (05:31→16:37)
[2018-11-06 06:30] LABS: Calcium 8.6 mg/dL (8.6-10.3); EGFR African American 140.9 (>60); EGFR Non-African American 116.4 (>60); Potassium 3.8 mmol/L (3.5-5.0)
--- NOTE | 2018-11-06 07:57 | PN ---
Subjective Date of Service: 11/06/18 Interval History: Was noted to have fever X one 101.5, reports no cough, no chills. This morning, reports no complaints, states that she had pain overnight and received tramadol. Family History: Unchanged from Admission - Non-Contributary at her age. Social History: Unchanged from Admission - Quit Smoking 53 years ago. Son lives at her home. Past Medical History: Unchanged from Admission Objective Active Medications: Acetaminophen (Tylenol Tab*) 650 mg PO Q4H PRN PRN Reason: PAIN SCALE 1-5 Last Admin: 11/06/18 03:28 Dose: 650 mg Al Hydrox/Mg Hydrox/Simethicone (Maalox Plus*) 30 ml PO Q4H PRN PRN Reason: DYSPEPSIA Last Admin: 11/01/18 17:02 Dose: 30 ml Alprazolam (Xanax Tab*) 0.25 mg PO BID PRN PRN Reason: ANXIETY Last Admin: 11/05/18 21:24 Dose: 0.25 mg Amlodipine Besylate (Norvasc Tab*) 10 mg PO DAILY [facility] Last Admin: 11/05/18 09:00 Dose: 10 mg Atenolol (Tenormin Tab*) 100 mg PO DAILY [facility] Last Admin: 11/05/18 09:00 Dose: 100 mg Atorvastatin Calcium (Lipitor*) 20 mg PO 1700 [facility] Last Admin: 11/05/18 16:59 Dose: 20 mg Calcium/Vitamin D (Oscal D Tab 250/125*) 1 tab PO DAILY [facility] Last Admin: 11/05/18 09:00 Dose: 1 tab Cholecalciferol (Vitamin D Tab*) 1,000 units PO DAILY [facility] Last Admin: 11/05/18 09:00 Dose: 1,000 units Docusate Sodium (Colace Cap*) 100 mg PO BID [facility] Last Admin: 11/05/18 20:49 Dose: 100 mg Enoxaparin Sodium (Lovenox(*)) 40 mg SUBCUT Q24H [facility] Last Admin: 11/05/18 21:24 Dose: 40 mg Ceftriaxone Sodium 1 gm/ (Sodium Chloride) 50 mls @ 200 mls/hr IVPB Q24H [facility] Stop: 11/07/18 16:59 Last Admin: 11/05/18 16:59 Dose: 200 mls/hr Magnesium Hydroxide (Milk Of Magnesia Liq*) 30 ml PO Q6H PRN PRN Reason: CONSTIPATION Last Admin: 11/01/18 09:34 Dose: 30 ml Multi-Ingredient Liniment/Rub (Rikki Hagan*) 1 applic TOPICAL BID PRN PRN Reason: PAIN SCALE 1-5 Last Admin: 11/05/18 09:06 Dose: 1 applic Ondansetron HCl (Zofran Tab*) 4 mg PO Q6H PRN PRN Reason: NAUSEA Last Admin: 11/05/18 11:51 Dose: 4 mg Polyethylene Glycol/Electrolytes (Miralax*) 17 gm PO DAILY PRN PRN Reason: CONSTIPATION Last Admin: 11/04/18 08:04 Dose: 17 gm Potassium Chloride (Klor Con Er Tab*) 10 meq PO DAILY [facility] Last Admin: 11/05/18 09:00 Dose: 10 meq Senna (Senokot Tab*) 1 tab PO BEDTIME PRN PRN Reason: CONSTIPATION Last Admin: 11/05/18 20:48 Dose: 1 tab Sodium Chloride (Sodium Chloride Tab*) 1 gm PO QID [facility] Tramadol HCl (Ultram*) 50 mg PO Q6H PRN PRN Reason: PAIN SCALE 6-10 Last Admin: 11/06/18 05:31 Dose: 50 mg Vital Signs - 8 hr 11/06/18 11/06/18 11/06/18 00:00 00:02 03:22 Temperature 101.5 F Pulse Rate 95 Respiratory 20 20 Rate Blood Pressure 142/66 (mmHg) O2 Sat by Pulse 95 98 Oximetry 11/06/18 11/06/18 11/06/18 04:37 05:31 07:19 Temperature 99 F 98.6 F Pulse Rate 83 Respiratory 20 16 Rate Blood Pressure 116/49 (mmHg) O2 Sat by Pulse 96 Oximetry Oxygen Devices in Use Now: Nasal Cannula - 1 Liters Appearance: Lying in bed, not in distress Respiratory: Symmetrical Chest Expansion and Respiratory Effort, Clear to Auscultation Cardiovascular: RRR, No Edema Abdominal: NL Sounds; No Tenderness; No Distention, No Hepatosplenomegaly Neurological: Alert and Oriented x 3 Result Diagrams: 11/04/18 05:35 11/06/18 05:39 Microbiology and Other Data: Microbiology 11/01/18 20:15 Urine Culture - Final Urine No Growth (<1,000 CFU/mL) 11/01/18 22:45 Nasal Screen MRSA (PCR) - Final Nasal Mrsa Not Detected 11/01/18 13:28 Stool Gross Appearance - Final Stool C. difficile DNA Amplification - Final 027 Presumptive NEGATIVE Toxigenic C.diff NEGATIVE 10/30/18 13:00 Urine Culture - Final Urine Escherichia Coli 10/27/18 22:11 Urine Culture - Final Urine No Growth (<1,000 CFU/mL) Diagnostic Imaging: MRI L-spine Acute L1 burst fracture EKG Data: Sinus at 70 beats per minute when compared to old EKG 08/23/2018 no significant change. Assess/Plan/Problems-Billing Assessment: 88W with hypertension, osteoporosis, anxiety, acoustic neuroma, and brain stem tumors who presented after sustaining a mechanical fall, found to have burst L1 fracture. Course complicated by severe hyponatremia of unclear etiology. - Patient Problems (1) Hypokalemia Current Visit: Yes Status: Acute Priority: Low Code(s): E87.6 - HYPOKALEMIA SNOMED Code(s): 14796280 Comment: - Resolved. (2) Hyponatremia Current Visit: Yes Status: Acute Code(s): E87.1 - HYPO-OSMOLALITY AND HYPONATREMIA SNOMED Code(s): 36631899 Comment: has improved from 110--> 126--> 123. urine studies suggest SIADH, continue fluid restriciton, continue to monitor. No headaches, no n/v. Hold thiazide. Sodium today trended downwards slighlty- will increase salt tablets to QID from TID. back to 800cc fluid restriction (3) L1 vertebral fracture Current Visit: Yes Status: Acute Code(s): S32.019A - UNSP FRACTURE OF FIRST LUMBAR VERTEBRA, INIT FOR CLOS FX SNOMED Code(s): 689802826 Comment: MRI shows mild decrease of L1 height, with acute burst fracture.. Neurosurgery recommended conservative approach with TLSO. - activity advanced to as tolerated (with TLSO if not in bed) - continue PT/OT; pending RALF placement (4) Leukocytosis Current Visit: Yes Status: Acute Priority: Medium Code(s): D72.829 - ELEVATED WHITE BLOOD CELL COUNT, UNSPECIFIED SNOMED Code(s): 136182963 Comment: - Present on admission, likely secondary to stress from fall, - diagnosed UTI (5) DVT prophylaxis Current Visit: Yes Status: Acute Code(s): Z29.9 - ENCOUNTER FOR PROPHYLACTIC MEASURES, UNSPECIFIED SNOMED Code(s): 100323799 Comment: - Lovenox. (6) UTI (urinary tract infection) Current Visit: Yes Status: Acute Comment: E. Coli, On rocephin Day 3. (7) Constipated Current Visit: Yes Status: Acute Code(s): K59.00 - CONSTIPATION, UNSPECIFIED SNOMED Code(s): 00069878 Comment: Likely due to pain medication and inactivity. Bowel regimen ordered Status and Disposition: Discussed with CM, once medically optimized- will go to [facility] for physical therapy.
[2018-11-06] MEDS: Calcium/Vitamin D TAB 250/125* TAB PO SCH (08:35)
[2018-11-06] MEDS: amLODIPine TAB* 5 MG PO SCH (08:36)
[2018-11-06] MEDS: Magnesium Hydroxide LIQ* 30 ML UDC PO PRN (08:36)
[2018-11-06] MEDS: Sodium Chloride TAB* 1 GM PO SCH ×4 (08:37→21:06)
[2018-11-06] MEDS: ALPRAZolam TAB* 0.25 MG PO PRN ×2 (08:37→19:32)
[2018-11-06] MEDS: Atenolol TAB* 50 MG PO SCH (08:37)
[2018-11-06] MEDS: Docusate CAP* 100 MG PO SCH ×2 (08:37→19:25)
[2018-11-06] MEDS: Potassium Chlor TAB* 10 MEQ TAB.ER PO SCH (08:38)
[2018-11-06] MEDS: Cholecalciferol TAB* 1000 UNITS PO SCH (08:38)
[2018-11-06] MEDS: Analgesic BALM* 114 GM TOPICAL PRN ×2 (08:39→16:58)
[2018-11-06] MEDS: Ondansetron TAB* 4 MG PO PRN (12:44)
[2018-11-06] MEDS ORDERED: Albuterol/Ipratropium NEB.SOL* Albuterol 2.5 MG/Ipratropium 0.5 MG 3 ML INH PRN (12:53)
[2018-11-06 14:19] LABS: Hematocrit 35 % (35-47); Mean Corpuscular HGB Conc 35 g/dL (31-36); Mean Corpuscular Hemoglobin 31 pg (27-31); Mean Corpuscular Volume 88 fL (80-97); Platelet Count 247 10^3/uL (150-450); Red Blood Count 3.94 10^6 /uL (3.70-4.87); Red Cell Distribution Width 14 % (10-15); White Blood Count 23.5 10^3/uL (3.5-10.8)
--- NOTE | 2018-11-06 14:52 | PN ---
Hospitalist Progress Note Date of Service: 11/06/18 Had fever overnight, now having wheezing on exam. ordered CXR, WBC is now 22, will broaden abx to vanc/zosyn and get blood cultures. f/u CXR. d/c rocephin f/u blood cultures.
[2018-11-06] MEDS ORDERED: NS 0.9% 1000 ML** 1,000 ML IV SCH (15:00)
[2018-11-06] MEDS ORDERED: Vancomycin(*) 1,000 MG in NS 0.9% 250 ML* 250 ML IVPB SCH (15:00)
[2018-11-06] MEDS ORDERED: Zosyn per Pharmacy* NOTE FOLLOW UP SCH (15:00)
[2018-11-06] MEDS ORDERED: Vancomycin(*) 1,000 MG in NS 0.9% 250 ML* 250 ML IVPB ONE (15:00)
[2018-11-06] MEDS ORDERED: Piperacillin/Tazobac ADVAN(*) 3.375 GM in NS 0.9% 100 ML* 100 ML IVPB ONE (15:00)
[2018-11-06 15:27] LABS: ABS Basophils 0.1 10^3/ul (0-0.2); ABS Eosinophils 0.4 10^3/ul (0-0.6); ABS Lymphocytes 0.5 10^3/ul (1.0-4.8); ABS Neutrophils 19.5 10^3/ul (1.5-7.7); Eosinophil % 1.7 %; Lymphocyte % 2.3 %
[2018-11-06] MEDS ORDERED: Vancomycin per Pharmacy* NOTE FOLLOW UP PRN (15:55)
[2018-11-06] MEDS: Atorvastatin* 20 MG TAB PO SCH (16:37)
[2018-11-06] MEDS: ZOSYN 3.375 GM Q8H per EXTENDED INFUSION IVPB SCH ×2 (19:28)
[2018-11-06] MEDS: Enoxaparin(*) 40 MG/0.4 ML SYR SUBCUT SCH (21:07)
[2018-11-07] MEDS: traMADol TAB* 50 MG PO PRN ×4 (01:30→23:04)
[2018-11-07] MEDS: ZOSYN 3.375 GM Q8H per EXTENDED INFUSION IVPB SCH ×6 (03:32→20:23)
[2018-11-07] MEDS: Acetaminophen TAB* 325 MG PO PRN (04:13)
[2018-11-07] MEDS: Vancomycin(*) 750 MG in NS 0.9% 250 ML* 250 ML IVPB SCH ×2 (06:21→16:11)
[2018-11-07 06:55] LABS: Hematocrit 30 % (35-47); Hemoglobin 10.6 g/dL (12.0-16.0); Mean Corpuscular HGB Conc 35 g/dL (31-36); Mean Corpuscular Hemoglobin 31 pg (27-31); Mean Corpuscular Volume 88 fL (80-97); Mean Platelet Volume 7.7 fL (7.4-10.4); Platelet Count 220 10^3/uL (150-450); Red Cell Distribution Width 14 % (10-15); White Blood Count 19.6 10^3/uL (3.5-10.8)
[2018-11-07 07:12] LABS: BUN/Creatinine Ratio 43.4 (8-20); Calcium 8.5 mg/dL (8.6-10.3); EGFR African American 131.7 (>60); EGFR Non-African American 108.9 (>60)
[2018-11-07] MEDS: amLODIPine TAB* 5 MG PO SCH (09:00)
[2018-11-07] MEDS: Calcium/Vitamin D TAB 250/125* TAB PO SCH (09:00)
[2018-11-07] MEDS: ALPRAZolam TAB* 0.25 MG PO PRN ×2 (09:01→20:38)
[2018-11-07] MEDS: Sodium Chloride TAB* 1 GM PO SCH ×4 (09:01→20:34)
[2018-11-07] MEDS: Potassium Chlor TAB* 10 MEQ TAB.ER PO SCH (09:02)
[2018-11-07] MEDS: Cholecalciferol TAB* 1000 UNITS PO SCH (09:02)
[2018-11-07] MEDS: Atenolol TAB* 50 MG PO SCH (09:02)
[2018-11-07] MEDS: Docusate CAP* 100 MG PO SCH ×2 (09:02→20:18)
[2018-11-07] MEDS: Analgesic BALM* 114 GM TOPICAL PRN ×2 (09:05→20:34)
--- NOTE | 2018-11-07 11:37 | PN ---
Subjective Date of Service: 11/07/18 Interval History: Feeling better, reports breathing easier this morning. Afebrile X 24 hours now. Family History: Unchanged from Admission - Non-Contributary at her age. Social History: Unchanged from Admission - Quit Smoking 53 years ago. Son lives at her home. Past Medical History: Unchanged from Admission Objective Active Medications: Acetaminophen (Tylenol Tab*) 650 mg PO Q4H PRN PRN Reason: PAIN SCALE 1-5 Last Admin: 11/07/18 04:13 Dose: 650 mg Al Hydrox/Mg Hydrox/Simethicone (Maalox Plus*) 30 ml PO Q4H PRN PRN Reason: DYSPEPSIA Last Admin: 11/01/18 17:02 Dose: 30 ml Albuterol/Ipratropium (Duoneb (Albuterol 2.5 Mg/Ipratropium 0.5 Mg)) 1 neb INH Q4H PRN PRN Reason: SOB/WHEEZING Alprazolam (Xanax Tab*) 0.25 mg PO BID PRN PRN Reason: ANXIETY Last Admin: 11/07/18 09:01 Dose: 0.25 mg Amlodipine Besylate (Norvasc Tab*) 10 mg PO DAILY [facility] Last Admin: 11/07/18 09:00 Dose: 10 mg Atenolol (Tenormin Tab*) 100 mg PO DAILY [facility] Last Admin: 11/07/18 09:02 Dose: 100 mg Atorvastatin Calcium (Lipitor*) 20 mg PO 1700 [facility] Last Admin: 11/06/18 16:37 Dose: 20 mg Calcium/Vitamin D (Oscal D Tab 250/125*) 1 tab PO DAILY [facility] Last Admin: 11/07/18 09:00 Dose: 1 tab Cholecalciferol (Vitamin D Tab*) 1,000 units PO DAILY [facility] Last Admin: 11/07/18 09:02 Dose: 1,000 units Docusate Sodium (Colace Cap*) 100 mg PO BID [facility] Last Admin: 11/07/18 09:02 Dose: Not Given Enoxaparin Sodium (Lovenox(*)) 40 mg SUBCUT Q24H [facility] Last Admin: 11/06/18 21:07 Dose: 40 mg Sodium Chloride (Ns 0.9% 1000 Ml) 1,000 mls @ 75 mls/hr IV PER RATE [facility] Vancomycin HCl 750 mg/ Sodium (Chloride) 250 mls @ 166.667 mls/hr IVPB Q12H [facility] Last Admin: 11/07/18 06:21 Dose: 166.667 mls/hr Piperacillin Sod/Tazobactam (Sod 3.375 gm/ Sodium Chloride) 100 mls @ 25 mls/ hr IVPB Q8H [facility] Last Admin: 11/07/18 03:32 Dose: 25 mls/hr Magnesium Hydroxide (Milk Of Magnesia Liq*) 30 ml PO Q6H PRN PRN Reason: CONSTIPATION Last Admin: 11/06/18 08:36 Dose: 30 ml Multi-Ingredient Liniment/Rub (Rikki Hagan*) 1 applic TOPICAL BID PRN PRN Reason: PAIN SCALE 1-5 Last Admin: 11/07/18 09:05 Dose: 1 applic Ondansetron HCl (Zofran Tab*) 4 mg PO Q6H PRN PRN Reason: NAUSEA Last Admin: 11/06/18 12:44 Dose: 4 mg Pharmacy Consult (Zosyn Per Pharmacy*) 1 note FOLLOW UP .ZOSYN PER PHARMACY [facility] Pharmacy Consult (Vancomycin Per Pharmacy*) 1 note FOLLOW UP . PRN PRN Reason: PER PROTOCOL Pharmacy Profile Note (Vancomycin Trough Check) 1 note FOLLOW UP ONCE ONE Stop: 11/08/18 04:31 Polyethylene Glycol/Electrolytes (Miralax*) 17 gm PO DAILY PRN PRN Reason: CONSTIPATION Last Admin: 11/04/18 08:04 Dose: 17 gm Potassium Chloride (Klor Con Er Tab*) 10 meq PO DAILY [facility] Last Admin: 11/07/18 09:02 Dose: 10 meq Senna (Senokot Tab*) 1 tab PO BEDTIME PRN PRN Reason: CONSTIPATION Last Admin: 11/05/18 20:48 Dose: 1 tab Sodium Chloride (Sodium Chloride Tab*) 1 gm PO QID [facility] Last Admin: 11/07/18 09:01 Dose: 1 gm Tramadol HCl (Ultram*) 50 mg PO Q6H PRN PRN Reason: PAIN SCALE 6-10 Last Admin: 11/07/18 09:01 Dose: 50 mg Vital Signs - 8 hr 11/07/18 11/07/18 07:00 09:01 Temperature 98.0 F Pulse Rate 80 Respiratory 16 18 Rate Blood Pressure 117/54 (mmHg) O2 Sat by Pulse 97 Oximetry Oxygen Devices in Use Now: Nasal Cannula Appearance: Elderly female, in bed, with nasal canula, not in distress Respiratory: - - mild expiratory wheezing., no tachypnea, no use of accessory muscles. Cardiovascular: RRR, No Edema Abdominal: NL Sounds; No Tenderness; No Distention, No Hepatosplenomegaly Extremities: No Edema Neurological: Alert and Oriented x 3 Result Diagrams: 11/07/18 06:33 11/07/18 06:33 Microbiology and Other Data: Microbiology 11/01/18 20:15 Urine Culture - Final Urine No Growth (<1,000 CFU/mL) 11/01/18 22:45 Nasal Screen MRSA (PCR) - Final Nasal Mrsa Not Detected 11/01/18 13:28 Stool Gross Appearance - Final Stool C. difficile DNA Amplification - Final 027 Presumptive NEGATIVE Toxigenic C.diff NEGATIVE 10/30/18 13:00 Urine Culture - Final Urine Escherichia Coli 10/27/18 22:11 Urine Culture - Final Urine No Growth (<1,000 CFU/mL) Diagnostic Imaging: MRI L-spine Acute L1 burst fracture EKG Data: Sinus at 70 beats per minute when compared to old EKG 08/23/2018 no significant change. Assess/Plan/Problems-Billing Assessment: 88W with hypertension, osteoporosis, anxiety, acoustic neuroma, and brain stem tumors who presented after sustaining a mechanical fall, found to have burst L1 fracture. Course complicated by severe hyponatremia of unclear etiology. - Patient Problems (1) Hypokalemia Current Visit: Yes Status: Acute Priority: Low Code(s): E87.6 - HYPOKALEMIA SNOMED Code(s): 14838023 Comment: - Resolved. (2) Hyponatremia Current Visit: Yes Status: Acute Code(s): E87.1 - HYPO-OSMOLALITY AND HYPONATREMIA SNOMED Code(s): 91149839 Comment: has improved from 110--> 126--> 123-> 128 today. urine studies suggest SIADH, continue fluid restriciton, continue to monitor. No headaches, no n/v. Hold thiazide. salt tablets 1mg four times daily fluid restriction 1000 cc. (3) L1 vertebral fracture Current Visit: Yes Status: Acute Code(s): S32.019A - UNSP FRACTURE OF FIRST LUMBAR VERTEBRA, INIT FOR CLOS FX SNOMED Code(s): 537089675 Comment: MRI shows mild decrease of L1 height, with acute burst fracture.. Neurosurgery recommended conservative approach with TLSO. - activity advanced to as tolerated (with TLSO if not in bed) - continue PT/OT; pending RALF placement (4) Leukocytosis Current Visit: Yes Status: Acute Priority: Medium Code(s): D72.829 - ELEVATED WHITE BLOOD CELL COUNT, UNSPECIFIED SNOMED Code(s): 325633128 Comment: - Present on admission, likely secondary to stress from fall, - diagnosed UTI-> WBC spiked on 11/06, started broad specturm abx with vanc/ zosyn. Cultures ordered. (5) DVT prophylaxis Current Visit: Yes Status: Acute Code(s): Z29.9 - ENCOUNTER FOR PROPHYLACTIC MEASURES, UNSPECIFIED SNOMED Code(s): 539269150 Comment: - Lovenox. (6) UTI (urinary tract infection) Current Visit: Yes Status: Acute Comment: finished 3 days rocephin, (7) Constipated Current Visit: Yes Status: Acute Code(s): K59.00 - CONSTIPATION, UNSPECIFIED SNOMED Code(s): 34374352 Comment: Likely due to pain medication and inactivity. Bowel regimen ordered Status and Disposition: Discussed with CM, once medically optimized- will go to [facility] for physical therapy.
[2018-11-07] MEDS: Atorvastatin* 20 MG TAB PO SCH (16:11)
[2018-11-07] MEDS: Ondansetron TAB* 4 MG PO PRN (16:18)
[2018-11-07] MEDS: Enoxaparin(*) 40 MG/0.4 ML SYR SUBCUT SCH (20:36)
[2018-11-08] MEDS: ZOSYN 3.375 GM Q8H per EXTENDED INFUSION IVPB SCH ×6 (04:03→20:00)
[2018-11-08] MEDS ORDERED: Vancomycin Trough Check NOTE FOLLOW UP ONE (04:30)
[2018-11-08 04:54] LABS: Hematocrit 32 % (35-47); Mean Corpuscular HGB Conc 34 g/dL (31-36); Mean Corpuscular Hemoglobin 31 pg (27-31); Mean Corpuscular Volume 89 fL (80-97); Mean Platelet Volume 7.4 fL (7.4-10.4); Platelet Count 249 10^3/uL (150-450); Red Cell Distribution Width 14 % (10-15)
[2018-11-08 05:12] LABS: BUN/Creatinine Ratio 47.9 (8-20); Calcium 8.7 mg/dL (8.6-10.3); EGFR African American 147.7 (>60); EGFR Non-African American 122.1 (>60); Potassium 3.8 mmol/L (3.5-5.0)
[2018-11-08 05:29] LABS: Vancomycin Trough 9.3 mcg/mL
[2018-11-08 05:37] LABS: ABS Eosinophils 0.4 10^3/ul (0-0.6); ABS Lymphocytes 1.4 10^3/ul (1.0-4.8); ABS Monocytes 2.2 10^3/ul (0-0.8); ABS Neutrophils 11.9 10^3/ul (1.5-7.7); Eosinophil % 2.7 %; Lymphocyte % 8.6 %
[2018-11-08] MEDS: Vancomycin(*) 750 MG in NS 0.9% 250 ML* 250 ML IVPB SCH (05:38)
[2018-11-08] MEDS: traMADol TAB* 50 MG PO PRN ×3 (06:00→22:12)
[2018-11-08] MEDS ORDERED: Sodium Chloride TAB* 1 GM PO SCH (09:00)
--- NOTE | 2018-11-08 09:23 | PN ---
Subjective Date of Service: 11/08/18 Interval History: Patient reports feeling better, but states that she is having anxiety, worried about her valuables as she is trying to figure things out. No chest pain, no fever. Reports breathing is improved, did have cough overnight with yellow colored sputum production Family History: Unchanged from Admission - Non-Contributary at her age. Social History: Unchanged from Admission - Quit Smoking 53 years ago. Son lives at her home. Past Medical History: Unchanged from Admission Objective Active Medications: Acetaminophen (Tylenol Tab*) 650 mg PO Q4H PRN PRN Reason: PAIN SCALE 1-5 Last Admin: 11/07/18 04:13 Dose: 650 mg Al Hydrox/Mg Hydrox/Simethicone (Maalox Plus*) 30 ml PO Q4H PRN PRN Reason: DYSPEPSIA Last Admin: 11/01/18 17:02 Dose: 30 ml Albuterol/Ipratropium (Duoneb (Albuterol 2.5 Mg/Ipratropium 0.5 Mg)) 1 neb INH Q4H PRN PRN Reason: SOB/WHEEZING Alprazolam (Xanax Tab*) 0.25 mg PO BID PRN PRN Reason: ANXIETY Last Admin: 11/07/18 20:38 Dose: 0.25 mg Amlodipine Besylate (Norvasc Tab*) 10 mg PO DAILY [facility] Last Admin: 11/07/18 09:00 Dose: 10 mg Atenolol (Tenormin Tab*) 100 mg PO DAILY [facility] Last Admin: 11/07/18 09:02 Dose: 100 mg Atorvastatin Calcium (Lipitor*) 20 mg PO 1700 [facility] Last Admin: 11/07/18 16:11 Dose: 20 mg Calcium/Vitamin D (Oscal D Tab 250/125*) 1 tab PO DAILY [facility] Last Admin: 11/07/18 09:00 Dose: 1 tab Cholecalciferol (Vitamin D Tab*) 1,000 units PO DAILY [facility] Last Admin: 11/07/18 09:02 Dose: 1,000 units Enoxaparin Sodium (Lovenox(*)) 40 mg SUBCUT Q24H [facility] Last Admin: 11/07/18 20:36 Dose: 40 mg Piperacillin Sod/Tazobactam (Sod 3.375 gm/ Sodium Chloride) 100 mls @ 25 mls/ hr IVPB Q8H [facility] Last Admin: 11/08/18 04:03 Dose: 25 mls/hr Vancomycin HCl 1,000 mg/ (Sodium Chloride) 250 mls @ 166.667 mls/hr IVPB Q12H [facility] Magnesium Hydroxide (Milk Of Magnesia Liq*) 30 ml PO Q6H PRN PRN Reason: CONSTIPATION Last Admin: 11/06/18 08:36 Dose: 30 ml Multi-Ingredient Liniment/Rub (Rikki Hagan*) 1 applic TOPICAL BID PRN PRN Reason: PAIN SCALE 1-5 Last Admin: 11/07/18 20:34 Dose: 1 applic Ondansetron HCl (Zofran Tab*) 4 mg PO Q6H PRN PRN Reason: NAUSEA Last Admin: 11/07/18 16:18 Dose: 4 mg Pharmacy Consult (Zosyn Per Pharmacy*) 1 note FOLLOW UP .ZOSYN PER PHARMACY [facility] Pharmacy Consult (Vancomycin Per Pharmacy*) 1 note FOLLOW UP . PRN PRN Reason: PER PROTOCOL Pharmacy Profile Note (Vancomycin Trough Check) 1 note FOLLOW UP 05 ONE Stop: 11/10/18 05:31 Potassium Chloride (Klor Con Er Tab*) 10 meq PO DAILY [facility] Last Admin: 11/07/18 09:02 Dose: 10 meq Sodium Chloride (Sodium Chloride Tab*) 1 gm PO BID [facility] Tramadol HCl (Ultram*) 50 mg PO Q6H PRN PRN Reason: PAIN SCALE 6-10 Last Admin: 11/08/18 06:00 Dose: 50 mg Vital Signs - 8 hr 11/08/18 11/08/18 11/08/18 04:50 06:00 07:58 Temperature 97.1 F Pulse Rate 91 Respiratory 19 18 16 Rate Blood Pressure 138/71 (mmHg) O2 Sat by Pulse 100 Oximetry 11/08/18 08:00 Temperature 97.8 F Pulse Rate 84 Respiratory 22 Rate Blood Pressure 117/51 (mmHg) O2 Sat by Pulse 99 Oximetry Oxygen Devices in Use Now: Nasal Cannula Appearance: Elderly female, sitting on bed, not in distress Respiratory: - - on nasal canula, no tachypnea, no wheezing/rales/rhonchi Cardiovascular: RRR, No Edema Neurological: - - Awake/alert, oriented X2. Result Diagrams: 11/08/18 04:48 11/08/18 04:48 Microbiology and Other Data: Microbiology 11/01/18 20:15 Urine Culture - Final Urine No Growth (<1,000 CFU/mL) 11/01/18 22:45 Nasal Screen MRSA (PCR) - Final Nasal Mrsa Not Detected 11/01/18 13:28 Stool Gross Appearance - Final Stool C. difficile DNA Amplification - Final 027 Presumptive NEGATIVE Toxigenic C.diff NEGATIVE 10/30/18 13:00 Urine Culture - Final Urine Escherichia Coli 10/27/18 22:11 Urine Culture - Final Urine No Growth (<1,000 CFU/mL) Diagnostic Imaging: MRI L-spine Acute L1 burst fracture EKG Data: Sinus at 70 beats per minute when compared to old EKG 08/23/2018 no significant change. Assess/Plan/Problems-Billing Assessment: 88W with hypertension, osteoporosis, anxiety, acoustic neuroma, and brain stem tumors who presented after sustaining a mechanical fall, found to have burst L1 fracture. Course complicated by severe hyponatremia of unclear etiology. - Patient Problems (1) Hypokalemia Current Visit: Yes Status: Acute Priority: Low Code(s): E87.6 - HYPOKALEMIA SNOMED Code(s): 20539455 Comment: - Resolved. (2) Hyponatremia Current Visit: Yes Status: Acute Code(s): E87.1 - HYPO-OSMOLALITY AND HYPONATREMIA SNOMED Code(s): 28891162 Comment: has improved from 110--> 126--> 123-> 128 --> 131 today. urine studies suggest SIADH, continue fluid restriciton, continue to monitor. No headaches, no n/v. Hold thiazide. change salt tablets to 1gm BID. fluid restriction 1000 cc. (3) L1 vertebral fracture Current Visit: Yes Status: Acute Code(s): S32.019A - UNSP FRACTURE OF FIRST LUMBAR VERTEBRA, INIT FOR CLOS FX SNOMED Code(s): 305595074 Comment: MRI shows mild decrease of L1 height, with acute burst fracture.. Neurosurgery recommended conservative approach with TLSO. - activity advanced to as tolerated (with TLSO if not in bed) - continue PT/OT; pending RALF placement (4) Leukocytosis Current Visit: Yes Status: Acute Priority: Medium Code(s): D72.829 - ELEVATED WHITE BLOOD CELL COUNT, UNSPECIFIED SNOMED Code(s): 502939728 Comment: - Present on admission, likely secondary to stress from fall, - diagnosed UTI-> WBC spiked on 11/06- now improving, cultures negative thus far , possible pnuemonia given WBC spike happened when she became short of breath, required oxygen, cough and wheezing. continue with vanc/zosyn. if cultures remain negative then tomorrow would d/c vancomycin. (5) DVT prophylaxis Current Visit: Yes Status: Acute Code(s): Z29.9 - ENCOUNTER FOR PROPHYLACTIC MEASURES, UNSPECIFIED SNOMED Code(s): 853177105 Comment: - Lovenox. (6) UTI (urinary tract infection) Current Visit: Yes Status: Acute Comment: finished 3 days rocephin, (7) Constipated Current Visit: Yes Status: Acute Code(s): K59.00 - CONSTIPATION, UNSPECIFIED SNOMED Code(s): 18521302 Comment: now havind diarrhea- started after getting bowel regimen. will d/c laxatives and stool softners Status and Disposition: Discussed with CM, once medically optimized- will go to [facility] for physical therapy.
[2018-11-08] MEDS: Atenolol TAB* 50 MG PO SCH (09:27)
[2018-11-08] MEDS: ALPRAZolam TAB* 0.25 MG PO PRN ×2 (09:27→20:09)
[2018-11-08] MEDS: Potassium Chlor TAB* 10 MEQ TAB.ER PO SCH (09:27)
[2018-11-08] MEDS: Calcium/Vitamin D TAB 250/125* TAB PO SCH (09:27)
[2018-11-08] MEDS: Sodium Chloride TAB* 1 GM PO SCH ×2 (09:27→20:01)
[2018-11-08] MEDS: Cholecalciferol TAB* 1000 UNITS PO SCH (09:27)
[2018-11-08] MEDS: amLODIPine TAB* 5 MG PO SCH (09:28)
[2018-11-08] MEDS: Docusate CAP* 100 MG PO SCH (09:39)
[2018-11-08] MEDS: Acetaminophen TAB* 325 MG PO PRN (11:25)
[2018-11-08] MEDS: Analgesic BALM* 114 GM TOPICAL PRN (11:25)
[2018-11-08] MEDS: Ondansetron TAB* 4 MG PO PRN (11:58)
[2018-11-08] MEDS: Vancomycin(*) 1,000 MG in NS 0.9% 250 ML* 250 ML IVPB SCH (16:32)
[2018-11-08] MEDS: Atorvastatin* 20 MG TAB PO SCH (16:32)
[2018-11-08] MEDS ORDERED: Bismuth Subsalicylate* 30 ML/527 MG ML PO PRN (16:41)
[2018-11-08] MEDS: Enoxaparin(*) 40 MG/0.4 ML SYR SUBCUT SCH (22:12)
[2018-11-09] MEDS: ZOSYN 3.375 GM Q8H per EXTENDED INFUSION IVPB SCH ×2 (03:44)
[2018-11-09] MEDS: Vancomycin(*) 1,000 MG in NS 0.9% 250 ML* 250 ML IVPB SCH (05:46)
[2018-11-09 07:36] LABS: BUN/Creatinine Ratio 28.6 (8-20); Calcium 8.2 mg/dL (8.6-10.3); EGFR African American 85.6 (>60); EGFR Non-African American 70.7 (>60); Potassium 3.6 mmol/L (3.5-5.0)
[2018-11-09] MEDS: traMADol TAB* 50 MG PO PRN ×2 (08:16→17:33)
[2018-11-09] MEDS: Potassium Chlor TAB* 10 MEQ TAB.ER PO SCH (08:16)
[2018-11-09] MEDS: Cholecalciferol TAB* 1000 UNITS PO SCH (08:17)
[2018-11-09] MEDS: Atenolol TAB* 50 MG PO SCH (08:17)
[2018-11-09] MEDS: amLODIPine TAB* 5 MG PO SCH (08:17)
[2018-11-09] MEDS: Calcium/Vitamin D TAB 250/125* TAB PO SCH (08:17)
[2018-11-09] MEDS: ALPRAZolam TAB* 0.25 MG PO PRN (08:17)
[2018-11-09] MEDS: Sodium Chloride TAB* 1 GM PO SCH (08:17)
--- NOTE | 2018-11-09 08:51 | PN ---
Subjective Date of Service: 11/09/18 Interval History: Having diarrhea- had 4 soft stools overnight, this morning had one soft BM. No abdominal pain, no fever, no chills. Afebrile X 48 plus hours. Family History: Unchanged from Admission - Non-Contributary at her age. Social History: Unchanged from Admission - Quit Smoking 53 years ago. Son lives at her home. Past Medical History: Unchanged from Admission Objective Active Medications: Acetaminophen (Tylenol Tab*) 650 mg PO Q4H PRN PRN Reason: PAIN SCALE 1-5 Last Admin: 11/08/18 11:25 Dose: 650 mg Al Hydrox/Mg Hydrox/Simethicone (Maalox Plus*) 30 ml PO Q4H PRN PRN Reason: DYSPEPSIA Last Admin: 11/01/18 17:02 Dose: 30 ml Albuterol/Ipratropium (Duoneb (Albuterol 2.5 Mg/Ipratropium 0.5 Mg)) 1 neb INH Q4H PRN PRN Reason: SOB/WHEEZING Alprazolam (Xanax Tab*) 0.25 mg PO BID PRN PRN Reason: ANXIETY Last Admin: 11/09/18 08:17 Dose: 0.25 mg Amlodipine Besylate (Norvasc Tab*) 10 mg PO DAILY [facility] Last Admin: 11/09/18 08:17 Dose: 10 mg Amoxicillin/Clavulanate Potassium (Augmentin Tab*) 875 mg PO BID [facility] Atenolol (Tenormin Tab*) 100 mg PO DAILY [facility] Last Admin: 11/09/18 08:17 Dose: 100 mg Atorvastatin Calcium (Lipitor*) 20 mg PO 1700 [facility] Last Admin: 11/08/18 16:32 Dose: 20 mg Bismuth Subsalicylate (Peptic Relief*) 30 ml PO Q8H PRN PRN Reason: DIARRHEA Last Admin: 11/09/18 08:17 Dose: 30 ml Calcium/Vitamin D (Oscal D Tab 250/125*) 1 tab PO DAILY [facility] Last Admin: 11/09/18 08:17 Dose: 1 tab Cholecalciferol (Vitamin D Tab*) 1,000 units PO DAILY [facility] Last Admin: 11/09/18 08:17 Dose: 1,000 units Enoxaparin Sodium (Lovenox(*)) 40 mg SUBCUT Q24H [facility] Last Admin: 11/08/18 22:12 Dose: 40 mg Lactobacillus Rhamnosus (Lactobacillus Acidophilus*) 1 tab PO BID [facility] Magnesium Hydroxide (Milk Of Magnesia Liq*) 30 ml PO Q6H PRN PRN Reason: CONSTIPATION Last Admin: 11/06/18 08:36 Dose: 30 ml Multi-Ingredient Liniment/Rub (Rikki Hagan*) 1 applic TOPICAL BID PRN PRN Reason: PAIN SCALE 1-5 Last Admin: 11/08/18 11:25 Dose: 1 applic Ondansetron HCl (Zofran Tab*) 4 mg PO Q6H PRN PRN Reason: NAUSEA Last Admin: 11/08/18 11:58 Dose: 4 mg Pharmacy Consult (Zosyn Per Pharmacy*) 1 note FOLLOW UP .ZOSYN PER PHARMACY [facility] Potassium Chloride (Klor Con Er Tab*) 10 meq PO DAILY [facility] Last Admin: 11/09/18 08:16 Dose: 10 meq Sodium Chloride (Sodium Chloride Tab*) 1 gm PO BID [facility] Last Admin: 11/09/18 08:17 Dose: 1 gm Tramadol HCl (Ultram*) 50 mg PO Q6H PRN PRN Reason: PAIN SCALE 6-10 Last Admin: 11/09/18 08:16 Dose: 50 mg Vital Signs - 8 hr 11/09/18 11/09/18 11/09/18 02:53 04:00 07:48 Temperature 97.2 F 98.4 F Pulse Rate 76 88 86 Respiratory 16 18 20 Rate Blood Pressure 145/58 134/50 (mmHg) O2 Sat by Pulse 98 99 97 Oximetry 11/09/18 11/09/18 11/09/18 07:49 08:16 08:17 Temperature Pulse Rate Respiratory 18 16 16 Rate Blood Pressure (mmHg) O2 Sat by Pulse Oximetry Appearance: Sitting on bed, eating breakfast, not in distress Respiratory: Symmetrical Chest Expansion and Respiratory Effort, Clear to Auscultation, - - No tachypnea Cardiovascular: NL Sounds; No Murmurs; No JVD, RRR Extremities: - - trace lower extremity edema Neurological: Alert and Oriented x 3 Result Diagrams: 11/08/18 04:48 11/09/18 06:54 Microbiology and Other Data: Microbiology 11/01/18 20:15 Urine Culture - Final Urine No Growth (<1,000 CFU/mL) 11/01/18 22:45 Nasal Screen MRSA (PCR) - Final Nasal Mrsa Not Detected 11/01/18 13:28 Stool Gross Appearance - Final Stool C. difficile DNA Amplification - Final 027 Presumptive NEGATIVE Toxigenic C.diff NEGATIVE 10/30/18 13:00 Urine Culture - Final Urine Escherichia Coli 10/27/18 22:11 Urine Culture - Final Urine No Growth (<1,000 CFU/mL) Diagnostic Imaging: MRI L-spine Acute L1 burst fracture EKG Data: Sinus at 70 beats per minute when compared to old EKG 08/23/2018 no significant change. Assess/Plan/Problems-Billing Assessment: 88W with hypertension, osteoporosis, anxiety, acoustic neuroma, and brain stem tumors who presented after sustaining a mechanical fall, found to have burst L1 fracture. Course complicated by severe hyponatremia of unclear etiology. - Patient Problems (1) Hypokalemia Current Visit: Yes Status: Acute Priority: Low Code(s): E87.6 - HYPOKALEMIA SNOMED Code(s): 03891997 Comment: - Resolved. (2) Hyponatremia Current Visit: Yes Status: Acute Code(s): E87.1 - HYPO-OSMOLALITY AND HYPONATREMIA SNOMED Code(s): 16683763 Comment: has improved from 110--> 126--> 123-> 128 --> 131--> 133 today. urine studies suggest SIADH, continue fluid restriciton, continue to monitor. No headaches, no n/v. Hold thiazide. d/c salt tablets. (3) L1 vertebral fracture Current Visit: Yes Status: Acute Code(s): S32.019A - UNSP FRACTURE OF FIRST LUMBAR VERTEBRA, INIT FOR CLOS FX SNOMED Code(s): 757011789 Comment: MRI shows mild decrease of L1 height, with acute burst fracture.. Neurosurgery recommended conservative approach with TLSO. - activity advanced to as tolerated (with TLSO if not in bed) - continue PT/OT; pending RALF placement (4) Leukocytosis Current Visit: Yes Status: Acute Priority: Medium Code(s): D72.829 - ELEVATED WHITE BLOOD CELL COUNT, UNSPECIFIED SNOMED Code(s): 439746097 Comment: - Present on admission, likely secondary to stress from fall, - diagnosed UTI-> WBC spiked on 11/06- now improving, cultures negative thus far , possible pnuemonia given WBC spike happened when she became short of breath, required oxygen, cough and wheezing. continue with vanc/zosyn. cultures remain negative, d/c vanc/zosyn, change to augmentin. having diarrhea, give probiotics. (5) DVT prophylaxis Current Visit: Yes Status: Acute Code(s): Z29.9 - ENCOUNTER FOR PROPHYLACTIC MEASURES, UNSPECIFIED SNOMED Code(s): 853258722 Comment: - Lovenox. (6) UTI (urinary tract infection) Current Visit: Yes Status: Acute Comment: finished 3 days rocephin, (7) Constipated Current Visit: Yes Status: Acute Code(s): K59.00 - CONSTIPATION, UNSPECIFIED SNOMED Code(s): 27231999 Comment: resolved, now having diarrhea- antibiotics associated? no fever, no abdominal pain- having formed stools. Status and Disposition: Placement to [facility] likely
[2018-11-09] MEDS: Lactobacillus Acidophilus* 1 TAB PO SCH ×2 (09:39→21:18)
[2018-11-09] MEDS: Amoxicillin/Clavulanate TAB* 875 MG PO SCH ×2 (09:39→21:18)
[2018-11-09] MEDS: Acetaminophen TAB* 325 MG PO PRN (13:13)
[2018-11-09] MEDS: Ondansetron TAB* 4 MG PO PRN ×2 (13:13→18:11)
[2018-11-09] MEDS: Atorvastatin* 20 MG TAB PO SCH (17:33)
[2018-11-09] MEDS: Enoxaparin(*) 40 MG/0.4 ML SYR SUBCUT SCH (21:18)
[2018-11-10] MEDS: Acetaminophen TAB* 325 MG PO PRN ×2 (04:18→13:17)
[2018-11-10] MEDS ORDERED: Vancomycin Trough Check NOTE FOLLOW UP ONE (05:30)
[2018-11-10] MEDS: Amoxicillin/Clavulanate TAB* 875 MG PO SCH (08:37)
[2018-11-10] MEDS: Cholecalciferol TAB* 1000 UNITS PO SCH (08:37)
[2018-11-10] MEDS: Calcium/Vitamin D TAB 250/125* TAB PO SCH (08:37)
[2018-11-10] MEDS: Potassium Chlor TAB* 10 MEQ TAB.ER PO SCH (08:37)
[2018-11-10] MEDS: Lactobacillus Acidophilus* 1 TAB PO SCH (08:37)
[2018-11-10] MEDS: Atenolol TAB* 50 MG PO SCH (08:46)
[2018-11-10] MEDS: amLODIPine TAB* 5 MG PO SCH (08:46)
[2018-11-10] MEDS: traMADol TAB* 50 MG PO PRN (08:46)
[2018-11-10] MEDS: ALPRAZolam TAB* 0.25 MG PO PRN (10:07)
--- NOTE | 2018-11-10 12:53 | DS ---
CC: Dr. Isi Hyatt * DATE OF ADMISSION: 10/29/2018. DATE OF DISCHARGE: 11/10/2018. REASON FOR ADMISSION: Status post fall. ADMISSION DIAGNOSES: 1. Lumbar L1 burst fracture. 2. Hypokalemia. 3. Leukocytosis. DISCHARGE DIAGNOSES: 1. L1 burst fracture. 2. Urinary tract infection. 3. Hypokalemia, resolved. 4. Hyponatremia, resolved. 5. Leukocytosis. 6. Back pain. 7. History of anxiety. 8. History of hypertension. 9. History of hyperlipemia. PRIMARY CARE PHYSICIAN: Dr. Isi Hyatt. CONSULTANTS DURING THE COURSE: Dr. Roxanne Thompson, Neurosurgery. HOSPITAL COURSE: This is an 88-year-old female who was admitted to the hospital because of a fall. Initial work-up revealed an L1 fracture for which Neurology was consulted and they recommended a brace. Hospital course was complicated by leukocytosis which was improving, however the patient was also found to have a urinary tract infection for which she finished a three day course of Rocephin. Further hospital course was complicated by severe hyponatremia with a sodium of 110. The patient's Thiazide was held. The patient was given IV fluids. 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 The patient was weaned off of salt pads and continued on fluid restriction. Sodium improved from 110 and gradually up to 133. The patient's hospital course was further complicated by on November 06 developing a fever, along with a cough as well as hypoxia. We empirically treated her with Vancomycin and Zosyn. WBC count was up trending as high as 23 with a diagnosis of pneumonia. Blood cultures were sent. Sputum cultures were obtained. Blood cultures were negative. We de-escalated the antibiotics from Vanco and Zosyn to Augmentin. The patient will need five additional days of Augmentin to finish the course. The patient also has a history of anxiety and required Xanax. Course was also complicated by the patient developing diarrhea. C-diff was negative. Lactobacillus was added. PHYSICAL EXAMINATION TODAY: General: Elderly female lying in bed in no acute distress. Vital Signs: Blood pressure of 135/54, heart rate of 85, temperature of 98.6, oxygenation of 96 percent on one liter of nasal cannula. HEENT: Pupils equal, round and reactive to light. Atraumatic, normocephalic. Heart: Regular rate and rhythm. 2/6 systolic murmur best heard at the right upper sternal border. Lungs: There is no tachypnea and no use of accessory muscles. No wheezing, rales, or rhonchi. Abdomen: Bowel sounds normoactive in all four quadrant. Abdomen is soft, nontender, nondistended. Extremities: There is dorsalis pedis 2+ bilaterally. Sensation is intact. Motor is 4/5 in all four extremities. The patient was also seen by PT during the course. DISCHARGE DISPOSITION: The patient is to be discharged to [facility] in good condition. Additional diagnosis also includes pneumonia with acute hypoxic respiratory failure. DIET: Instructions include fluid restriction at 1200 ml. The patient to return to the emergency room for fevers, chills, worsening cough , chest pain, or if new symptoms arise. We advise you to get a repeat basic metabolic panel on November 15 to check repeat sodium level. DISCHARGE FOLLOW-UP: The patient to follow-up with Dr. Isi Hyatt a week upon discharge from the [facility]. The patient's daughter also made the patient a do not resuscitate as well as the patient agreed to be do not resuscitate and made the daughter the healthcare proxy. MOLST form was filled out. [id number]/[facility] #: [id number] MTDD
[2018-11-10 15:07] VITALS: BP 130/56
== END 2018-11-10 14:50 | DRG 551 ==
LOC: ED 16:43 → MED 21:28 → OBSVTOIN 10-29 16:00 → MED 10-31 03:00 → ICU 11-01 22:16 → MED 11-02 14:08
PROVIDERS: ADMIT Internal Medicine; ATTEND Internal Medicine
DX: S32.011A Stable burst fracture of first lumbar vertebra, initial encounter for closed fracture (principal); J18.9 Pneumonia, unspecified organism; N39.0 Urinary tract infection, site not specified; E22.2 Syndrome of inappropriate secretion of antidiuretic hormone; I10 Essential (primary) hypertension; E78.5 Hyperlipidemia, unspecified; M81.0 Age-related osteoporosis without current pathological fracture; W18.30XA Fall on same level, unspecified, initial encounter; N39.3 Stress incontinence (female) (male); F41.9 Anxiety disorder, unspecified; D72.829 Elevated white blood cell count, unspecified; E87.6 Hypokalemia; R11.0 Nausea; B96.20 Unspecified Escherichia coli [E. coli] as the cause of diseases classified elsewhere; K59.00 Constipation, unspecified; Z66 Do not resuscitate; R19.7 Diarrhea, unspecified; R09.02 Hypoxemia; Y92.9 Unspecified place or not applicable; Z97.4 Presence of external hearing-aid; Z90.710 Acquired absence of both cervix and uterus; Z98.42 Cataract extraction status, left eye; Z98.41 Cataract extraction status, right eye; Z88.1 Allergy status to other antibiotic agents; Z87.891 Personal history of nicotine dependence
CPT/HCPCS: 36415; 71045; 72100; 72148; 80048; 80053; 80202; 81003; 81015; 82436; 82533; 83036; 83735; 83930; 83935; 84100; 84133; 84300; 84443; 85025; 85027; 85060; 87040; 87077; 87086; 87186; 87493; 87641; 93005; 99284; A9270-GY; G0378; G8978-GP-CJ; G8978-GP-CK; G8979-GP-CI; G8987-GO-CL; G8988-GO-CI; J0696; J1650; J2405; J2543; J3370; J3480; Q0164